=== PATIENT | female | born 1925 | race Caucasian/White ===

== ENCOUNTER 2017-10-01 10:29 | Inpatient (IN) | payer MEDICARE, OTHER ==
--- NOTE | 2017-10-01 11:07 | EDM.PDOC ---
ED HPI GENERAL MEDICAL PROBLEM - General Chief Complaint: General Stated Complaint: SOB Time Seen by Provider: 10/01/17 10:45 Source of Information: Reports: Patient, Family, Old Records History Limitations: Reports: No Limitations - History of Present Illness INITIAL COMMENTS - FREE TEXT/NARRATIVE: Rose comes to [facility] ED with a 2 mos hx of SOB, 5# wt gain, and concerns for possible heart failure. 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 There are 2 episodes of suspected PND, without PNA, palpitations, dizziness, cough, wheezing, or GI upset. Of interest is a PMH of nonHodgkins Lymphoma diagnosed last year. - Related Data Allergies Allergy/AdvReac Type Severity Reaction Status Date / Time atorvastatin calcium AdvReac Joint Pain Verified 10/01/17 10:40 [From Lipitor] Home Meds: Home Meds Amiodarone [Cordarone] 100 mg PO DAILY 07/05/16 [History] Furosemide 60 mg PO DAILY PRN 07/05/16 [History] Metoprolol Succinate 25 mg PO BID 08/14/16 [History] Potassium Chloride 20 meq PO DAILY 10/01/17 [History] Sodium Chloride 1 gm PO ASDIRECTED 10/01/17 [History] Past Medical History HEENT History: Reports: Cataract Cardiovascular History: Reports: High Cholesterol, Hypertension Respiratory History: Reports: None Gastrointestinal History: Reports: Cholelithiasis Genitourinary History: Reports: Urinary Incontinence, Other (See Below) Other Genitourinary History: Stress incontinence. 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 Dermatologic History: Reports: Other (See Below) Other Dermatologic History: Had skin reactions from chemo, presently healing. - Infectious Disease History Infectious Disease History: Reports: Chicken Pox, Other (See Below) Other Infectious Disease History: Had measles, unsure if Red or Burkinan. - Past Surgical History Head Surgeries/Procedures: Reports: None HEENT Surgical History: Reports: Cataract Surgery GI Surgical History: Reports: Appendectomy, Cholecystectomy Female Surgical History: Reports: Hysterectomy Musculoskeletal Surgical History: Reports: Other (See Below) Other Musculoskeletal Surgeries/Procedures:: BILATERAL KNEE PAIN Social & Family History - Family History HEENT: Reports: Cataract Cardiac: Reports: Heart Failure, [place], Prior Cardiac Arrest Musculoskeletal: Reports: None Endocrine/Metabolic: Reports: Diabetes, Type I Oncologic: Reports: Ovarian - Tobacco Use Smoking Status *Q: Never Smoker Second Hand Smoke Exposure: Yes - Caffeine Use Caffeine Use: Reports: Coffee Other Caffeine Use: Drinks a little tea or coffee at times. - Recreational Drug Use Recreational Drug Use: No ED ROS GENERAL - Review of Systems Review Of Systems: See Below Constitutional: Reports: Malaise, Weakness, Fatigue, Weight Gain HEENT: Reports: No Symptoms Respiratory: Reports: Shortness of Breath Cardiovascular: Reports: Chest Pain (atypical chest pain episodes x 2, retrosternal, lasted for moments and subsided earlier this month) Endocrine: Reports: Fatigue GI/Abdominal: Reports: No Symptoms : Reports: No Symptoms Musculoskeletal: Reports: No Symptoms Neurological: Reports: No Symptoms Psychiatric: Reports: Anxiety Hematologic/Lymphatic: Reports: No Symptoms Immunologic: Reports: No Symptoms ED EXAM, GENERAL - Physical Exam Exam: See Below Exam Limited By: No Limitations General Appearance: Alert, WD/WN, No Apparent Distress, Anxious Eye Exam: Bilateral Eye: EOMI, Normal Inspection, PERRL Ears: Normal External Exam, Normal TMs Nose: Normal Inspection Throat/Mouth: Normal Inspection, Normal Oropharynx, No Airway Compromise Head: Atraumatic, Normocephalic Neck: Normal Inspection, Supple, Non-Tender, Full Range of Motion Respiratory/Chest: No Respiratory Distress, Lungs Clear, Normal Breath Sounds, Chest Non-Tender Cardiovascular: Regular Rate, Rhythm, No Gallop, No Murmur GI/Abdominal: Normal Bowel Sounds, Soft, Non-Tender, No Organomegaly, No Distention, No Mass (Female) Exam: Deferred Rectal (Female) Exam: Deferred Back Exam: Normal Inspection, Full Range of Motion Extremities: Normal Inspection, Normal Range of Motion, Pedal Edema (both lower extremities, mild) Neurological: Alert, Oriented, CN II-XII Intact, Normal Cognition, No Motor/ Sensory Deficits Psychiatric: Normal Affect, Anxious Skin Exam: Warm, Dry, Intact Lymphatic: No Adenopathy Course - Vital Signs Text/Narrative:: Following assessment at the [facility] ED, medical investigation included a port chest x ray noting bilateral changes in both lung bases with effusions; the ekg noted NSR; BUN 23, Cr 1.4; Troponin I 0.028, d-dimer 2470, ESR 5 mm; pro BNP 19, 714; Hgb 14.2 gm, WBC 5,100, plts 138,000; Na 142, K 3.6; non FBS 155; a Chest Angio CT noted: cardiac enlargement with bilateral pleural effusions, no pulmonary emboli, no hilar adenopathy;case discussed with family and hospitalist , and she will be admitted for medical management. Last Recorded V/S: Last Vital Signs Temp 36.3 C 10/01/17 10:48 Pulse 93 10/01/17 10:48 Resp 22 H 10/01/17 10:48 BP 119/69 10/01/17 10:48 Pulse Ox 100 10/01/17 10:48 - Orders/Labs/Meds Orders: Active Orders 24 hr Category Date Time Status Ang Chest [CT] Stat Exams 10/01/17 12:26 Taken EKG 12 Lead [EK] Routine Ther 10/01/17 11:00 Ordered Labs: Laboratory Tests 10/01/17 10/01/17 10/01/17 Range/Units 11:10 11:10 11:10 WBC 5.1 (4.5-12.0) X10-3/uL RBC 4.34 (3.23-5.20) x10(6)uL Hgb 14.2 D (11.5-15.5) g/dL Hct 43.4 D (30.0-51.3) % MCV 100.1 H (80-96) fL MCH 32.7 (27.7-33.6) pg MCHC 32.7 (32.2-35.4) g/dL RDW 16.5 H (11.5-15.5) % Plt Count 138 (125-369) X10(3)uL MPV 9.0 (7.4-10.4) fL Neut % (Auto) 67.0 (46-82) % Lymph % (Auto) 18.4 (13-37) % [place] % (Auto) 12.9 H (4-12) % Eos % (Auto) 1 (1.0-5.0) % Baso % (Auto) 1 (0-2) % Neut # (Auto) 3.4 (1.6-8.3) # Lymph # (Auto) 0.9 (0.6-5.0) # [place] # (Auto) 0.7 (0.0-1.3) # Eos # (Auto) 0.1 (0.0-0.8) # Baso # (Auto) 0.0 (0.0-0.2) # ESR (0-20) mm/hr D-Dimer, Quantitative (100-400) ng/mL Sodium 142 (135-145) mmol/L Potassium 3.6 (3.5-5.3) mmol/L Chloride 105 (100-110) mmol/L Carbon Dioxide 27 (21-32) mmol/L BUN 23 H (7-18) mg/dL Creatinine 1.4 H (0.55-1.02) mg/dL Est Cr Clr Drug Dosing 22.53 mL/min Estimated GFR (MDRD) 35 L (>60) BUN/Creatinine Ratio 16.4 (9-20) Glucose 155 H (80-116) mg/dL Calcium 9.2 (8.6-10.2) mg/dL Magnesium 2.0 (1.8-2.5) mg/dL Total Bilirubin 1.4 H (0.1-1.3) mg/dL AST 33 H (5-25) IU/L ALT 29 (12-36) U/L Alkaline Phosphatase 121 H (56-112) IU/L Troponin I 0.028 (<0.017-0.056) ng/mL C-Reactive Protein (0.5-0.9) mg/dL NT-Pro-B Natriuret Pep 72567 H* (<=450) pg/mL Total Protein 6.7 (6.0-8.0) g/dL Albumin 3.3 (2.9-4.5) g/dL Globulin 3.4 g/dL Albumin/Globulin Ratio 1.0 TSH, Ultra Sensitive 1.13 (0.36-3.74) IU/mL Urine Color (YELLOW) Urine Appearance (CLEAR) Urine pH (5.0-6.5) Ur Specific [place] (1.010-1.025) Urine Protein (NEGATIVE) mg/dL Urine Glucose (UA) (NEGATIVE) mg/dL Urine Ketones (NEGATIVE) mg/dL Urine Occult Blood (NEGATIVE) Urine Nitrite (NEGATIVE) Urine Bilirubin (NEGATIVE) Urine Urobilinogen (NEGATIVE) mg/dL Ur Leukocyte Esterase (NEGATIVE) Urine RBC (0) Urine WBC (0) Ur Squamous Epith Cells (NS,R,O) Urine Bacteria (NS) 10/01/17 10/01/17 10/01/17 Range/Units 11:10 11:10 11:10 WBC (4.5-12.0) X10-3/uL RBC (3.23-5.20) x10(6)uL Hgb (11.5-15.5) g/dL Hct (30.0-51.3) % MCV (80-96) fL MCH (27.7-33.6) pg MCHC (32.2-35.4) g/dL RDW (11.5-15.5) % Plt Count (125-369) X10(3)uL MPV (7.4-10.4) fL Neut % (Auto) (46-82) % Lymph % (Auto) (13-37) % [place] % (Auto) (4-12) % Eos % (Auto) (1.0-5.0) % Baso % (Auto) (0-2) % Neut # (Auto) (1.6-8.3) # Lymph # (Auto) (0.6-5.0) # [place] # (Auto) (0.0-1.3) # Eos # (Auto) (0.0-0.8) # Baso # (Auto) (0.0-0.2) # ESR 5 (0-20) mm/hr D-Dimer, Quantitative 2470 H (100-400) ng/mL Sodium (135-145) mmol/L Potassium (3.5-5.3) mmol/L Chloride (100-110) mmol/L Carbon Dioxide (21-32) mmol/L BUN (7-18) mg/dL Creatinine (0.55-1.02) mg/dL Est Cr Clr Drug Dosing mL/min Estimated GFR (MDRD) (>60) BUN/Creatinine Ratio (9-20) Glucose (80-116) mg/dL Calcium (8.6-10.2) mg/dL Magnesium (1.8-2.5) mg/dL Total Bilirubin (0.1-1.3) mg/dL AST (5-25) IU/L ALT (12-36) U/L Alkaline Phosphatase (56-112) IU/L Troponin I (<0.017-0.056) ng/mL C-Reactive Protein 1.3 H (0.5-0.9) mg/dL NT-Pro-B Natriuret Pep (<=450) pg/mL Total Protein (6.0-8.0) g/dL Albumin (2.9-4.5) g/dL Globulin g/dL Albumin/Globulin Ratio TSH, Ultra Sensitive (0.36-3.74) IU/mL Urine Color (YELLOW) Urine Appearance (CLEAR) Urine pH (5.0-6.5) Ur Specific [place] (1.010-1.025) Urine Protein (NEGATIVE) mg/dL Urine Glucose (UA) (NEGATIVE) mg/dL Urine Ketones (NEGATIVE) mg/dL Urine Occult Blood (NEGATIVE) Urine Nitrite (NEGATIVE) Urine Bilirubin (NEGATIVE) Urine Urobilinogen (NEGATIVE) mg/dL Ur Leukocyte Esterase (NEGATIVE) Urine RBC (0) Urine WBC (0) Ur Squamous Epith Cells (NS,R,O) Urine Bacteria (NS) 10/01/17 Range/Units 11:30 WBC (4.5-12.0) X10-3/uL RBC (3.23-5.20) x10(6)uL Hgb (11.5-15.5) g/dL Hct (30.0-51.3) % MCV (80-96) fL MCH (27.7-33.6) pg MCHC (32.2-35.4) g/dL RDW (11.5-15.5) % Plt Count (125-369) X10(3)uL MPV (7.4-10.4) fL Neut % (Auto) (46-82) % Lymph % (Auto) (13-37) % [place] % (Auto) (4-12) % Eos % (Auto) (1.0-5.0) % Baso % (Auto) (0-2) % Neut # (Auto) (1.6-8.3) # Lymph # (Auto) (0.6-5.0) # [place] # (Auto) (0.0-1.3) # Eos # (Auto) (0.0-0.8) # Baso # (Auto) (0.0-0.2) # ESR (0-20) mm/hr D-Dimer, Quantitative (100-400) ng/mL Sodium (135-145) mmol/L Potassium (3.5-5.3) mmol/L Chloride (100-110) mmol/L Carbon Dioxide (21-32) mmol/L BUN (7-18) mg/dL Creatinine (0.55-1.02) mg/dL Est Cr Clr Drug Dosing mL/min Estimated GFR (MDRD) (>60) BUN/Creatinine Ratio (9-20) Glucose (80-116) mg/dL Calcium (8.6-10.2) mg/dL Magnesium (1.8-2.5) mg/dL Total Bilirubin (0.1-1.3) mg/dL AST (5-25) IU/L ALT (12-36) U/L Alkaline Phosphatase (56-112) IU/L Troponin I (<0.017-0.056) ng/mL C-Reactive Protein (0.5-0.9) mg/dL NT-Pro-B Natriuret Pep (<=450) pg/mL Total Protein (6.0-8.0) g/dL Albumin (2.9-4.5) g/dL Globulin g/dL Albumin/Globulin Ratio TSH, Ultra Sensitive (0.36-3.74) IU/mL Urine Color Yellow (YELLOW) Urine Appearance Clear (CLEAR) Urine pH 7.0 H (5.0-6.5) Ur Specific [place] 1.015 (1.010-1.025) Urine Protein Negative (NEGATIVE) mg/dL Urine Glucose (UA) Normal (NEGATIVE) mg/dL Urine Ketones Negative (NEGATIVE) mg/dL Urine Occult Blood Negative (NEGATIVE) Urine Nitrite Negative (NEGATIVE) Urine Bilirubin Negative (NEGATIVE) Urine Urobilinogen Normal (NEGATIVE) mg/dL Ur Leukocyte Esterase Negative (NEGATIVE) Urine RBC 0-5 (0) Urine WBC 0-5 (0) Ur Squamous Epith Cells Occasional (NS,R,O) Urine Bacteria Many H (NS) Meds: Medications Discontinued Medications Generic Name Dose Route Start Last Admin Trade Name Fabio PRN Reason Stop Dose Admin Iopamidol 75 ml 10/01/17 12:50 Isovue-370 (76%) IV 10/01/17 12:51 ONETIME ONE Departure - Departure Time of Disposition: 15:08 Disposition: Admitted As Inpatient 68 Condition: Poor Clinical Impression: CHF, Congestive heart failure - Discharge Information Referrals: Chintan Mendoza MD [Primary Care Provider] - Forms: ED Department Discharge - Problem List & Annotations (1) CHF, Congestive heart failure SNOMED Code(s): 37579929 Code(s): I50.9 - HEART FAILURE, UNSPECIFIED Status: Acute Current Visit: Yes Annotation/Comment:: Admission to Med Surg w monitored bed. - Problem List Review Problem List Initiated/Reviewed/Updated: Yes - My Orders Last 24 Hours: My Active Orders 10/01/17 11:00 EKG 12 Lead [EK] Routine 10/01/17 12:26 Ang Chest [CT] Stat - Assessment/Plan Last 24 Hours: My Active Orders 10/01/17 11:00 EKG 12 Lead [EK] Routine 10/01/17 12:26 Ang Chest [CT] Stat Plan: Follow up with PCP next week.
--- NOTE | 2017-10-01 12:29 | CR ---
INDICATION: Dyspnea. CHEST: Portable AP upright view of the chest was obtained 10/01/2017 and compared with examinations from 01/03/2016 and 08/14/2016, and now reveals bibasilar pleuroparenchymal changes which may be on the basis of minimal pneumonia and pleuritis. Question the possibility of aspiration pneumonia. Other etiology such as neoplasia, in this patient with history of treated Hodgkins lymphoma, would be a less likely possibility with this appearance. Findings should be correlated clinically, however. The heart did not appear grossly enlarged, but was emphasized by the poor inspiration and AP positioning. Calcifications are noted in the arch of the aorta. IMPRESSION: Bibasilar pleuroparenchymal changes of mild degree, which may be on the basis of pneumonia and pleuritis - correlate clinically. Report was given in person to Dr. Kerr at 1135 hours, 10/01/2017. [facility]
[2017-10-01] MEDS ORDERED: Iopamidol 755 Mg/ML 75 ML Bottle IV ONE (12:50)
--- NOTE | 2017-10-01 16:00 | CT ---
INDICATION: Dyspnea, markedly elevated BNP, D-dimer. COMPUTERIZED TOMOGRAPHY ANGIOGRAPHY OF THE CHEST FOR PULMONARY ARTERIES: Spiral 1.25-mm axial sections were obtained through the chest with 75 mL Isovue- 370 at 3 mL per second, with sagittal and coronal reconstructions, 10/01/2017. No comparison CT of the chest was available. Total Exam DLP = 581.08 mGy-cm. Patchy parenchymal changes are noted in the middle lobe and both lower lobes, with moderate sized pleural effusions bilaterally. Findings are felt to be compatible with pneumonia and pleuritis. A process such as aspiration pneumonia would be a consideration. The heart is enlarged. Coronary artery calcifications are seen. No definite evidence of pulmonary emboli could be identified. Calcifications are also noted in the aorta. No definite mediastinal masses were identified. IMPRESSION: 1. No definite evidence of pulmonary emboli could be identified with fairly good visualization of the pulmonary arteries, except in the lower lobes, which were not ideally seen. 2. ASHD with cardiomegaly. 3. ASD. 4. Bibasilar pleuroparenchymal changes compatible with pneumonia and pleuritis with moderate sized pleural effusions bilaterally. Report was given in person to Dr. Kerr soon after the examinations completion, 10/01/2017. [facility]
[2017-10-01] MEDS ORDERED: Lisinopril 2.5 MG Tab PO SCH (17:00)
[2017-10-01] MEDS ORDERED: Sodium Chloride 1 GM Tab PO SCH (17:00)
--- NOTE | 2017-10-01 17:06 | PCM.HP ---
H&P History of Present Illness - General Date of Service: 10/01/17 Admit Problem/Dx: Admission Diagnosis/Problem Admission Diagnosis/Problem Congestive heart failure - History of Present Illness Initial Comments - Free Text/Narative: Pleasant 89-year-old female brought in by her daughter whom she lives with for increasing dyspnea on exertion and weight gain. Patient with chronic CHF recently seen by cardiology and had her Lasix increased as well as fluid restriction of 1500 mL a day with a known EF of 35 per echocardiogram within the last year. She's not had any fevers chills nausea vomiting chest pressure, chest pain, back pain neck or jaw pain. She denies any asymmetric lower extremity edema or pain. She denies any cough, wheezing or sputum production. She has had a normal appetite and bowel regimen. Denies any dysuria, hematuria or pelvic pain pressure. No joint swelling or tenderness. She denies any falls lightheadedness or dizziness upon standing. She is normally ambulatory with a walker but will go up and down the stairs with a cane. When she was seen by cardiology had her Lasix increased. Denies any cardiac surgical procedures. No history of DVT. Presentation to the ER: Noted to have normal respiratory rate and effort, sats mid 90% on room air, afebrile, normotensive with slight elevation in heart rate. EKG with normal ST segments, no blocks or T-wave inversions. Sinus rhythm. Troponin negative. Labs essentially positive for slight elevation in d- dimer for which a CT angiogram was performed ruling out pulmonary embolism. She was noted to have bilateral pleural effusions consistent with CHF exacerbation. Question of infiltrate right lobe lower. Chest x-ray showed poor inspiratory effort. Dr. Carlos Olson is her regular physician. - Related Data Allergies/Adverse Reactions: Allergies Allergy/AdvReac Type Severity Reaction Status Date / Time atorvastatin calcium AdvReac Joint Pain Verified 10/01/17 10:40 [From Lipitor] Home Medications: Home Meds Amiodarone [Cordarone] 100 mg PO DAILY 07/05/16 [History] Furosemide 60 mg PO DAILY PRN 07/05/16 [History] Metoprolol Succinate 25 mg PO BID 08/14/16 [History] Potassium Chloride 20 meq PO DAILY 10/01/17 [History] Sodium Chloride 1 gm PO ASDIRECTED 10/01/17 [History] Past Medical History HEENT History: Reports: Cataract Cardiovascular History: Reports: Heart Failure, High Cholesterol, Hypertension, SOB on Exertion Respiratory History: Reports: None Gastrointestinal History: Reports: Cholelithiasis Genitourinary History: Reports: Urinary Incontinence, Other (See Below) Other Genitourinary History: Stress incontinence. 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 Dermatologic History: Reports: Other (See Below) Other Dermatologic History: Had skin reactions from chemo, THAT LEFT SCARS - Infectious Disease History Infectious Disease History: Reports: Chicken Pox, Other (See Below) Other Infectious Disease History: Had measles, unsure if Red or Estonian. - Past Surgical History Head Surgeries/Procedures: Reports: None HEENT Surgical History: Reports: Cataract Surgery GI Surgical History: Reports: Appendectomy, Cholecystectomy Female Surgical History: Reports: Hysterectomy Musculoskeletal Surgical History: Reports: Other (See Below) Other Musculoskeletal Surgeries/Procedures:: BILATERAL KNEE PAIN - Past Imaging History Past Imaging History: Reports: Angiography, Cardiac Echo, CAT Scan, EEG, Xray Social & Family History - Family History HEENT: Reports: Cataract Cardiac: Reports: Heart Failure, [place], Prior Cardiac Arrest Musculoskeletal: Reports: None Endocrine/Metabolic: Reports: Diabetes, Type I Oncologic: Reports: Ovarian - Tobacco Use Smoking Status *Q: Never Smoker Second Hand Smoke Exposure: Yes - Caffeine Use Caffeine Use: Reports: Coffee Other Caffeine Use: Drinks a little tea or coffee at times. - Recreational Drug Use Recreational Drug Use: No H&P Review of Systems - Review of Systems: Review Of Systems: ROS reveals no pertinent complaints other than HPI. Exam - Exam Exam: See Below - Vital Signs Vital Signs: Last Vital Signs Temp 97.4 F 10/01/17 15:24 Pulse 87 10/01/17 15:24 Resp 18 10/01/17 15:24 BP 116/93 H 10/01/17 15:24 Pulse Ox 100 10/01/17 15:24 Weight: 69.49 kg - Exam General: Alert, Oriented, Cooperative. No: Mild Distress HEENT: Conjunctiva Clear, Mucosa Moist & [place]. No: Scleral Icterus Neck: Supple, Trachea Midline. No: JVD, Thyromegaly Lungs: Rales (lower lobes) Cardiovascular: Regular Rate, Regular Rhythm. No: Gallop/S3, Gallop/S4 GI/Abdominal Exam: Normal Bowel Sounds, Soft, Non-Tender, No Distention Extremities: Non-Tender. No: Joint Swelling, Kelton's Sign, Increased Warmth Skin: Warm, Dry Neurological: Strength Equal Bilateral, Normal Speech, Normal Tone Neuro Extensive - Mental Status: Normal Mood/Affect, Normal Cognition Psychiatric: Alert, Normal Affect, Normal Mood - Patient Data Result Diagrams: 10/01/17 11:10 10/01/17 11:10 *Q Meaningful Use (ADM) - VTE *Q VTE Criteria *Q: - Stroke *Q Stroke Criteria *Q: - AMI *Q AMI Criteria *Q: - Problem List (1) CHF, Congestive heart failure SNOMED Code(s): 64322030 ICD Code: I50.9 - HEART FAILURE, UNSPECIFIED Status: Acute Priority: High Current Visit: Yes Problem Details: Admission to Med [facility] monitored bed. (2) Pleural effusion due to CHF (congestive heart failure) SNOMED Code(s): 73476437 ICD Code: I50.9 - HEART FAILURE, UNSPECIFIED Status: Acute Priority: High Current Visit: Yes Problem List Initiated/Reviewed/Updated: Yes Orders Last 24hrs: Active Orders 24 hr Category Date Time Status Bedrest Bathroom Privileges [RC] ASDIRECTED Care 10/01/17 16:57 Ordered Cardiac Education [RC] Click to Edit Care 10/01/17 16:49 Ordered Cardiac Monitoring [RC] CONTINUOUS Care 10/01/17 16:58 Ordered Head of Bed Elevation [RC] ASDIRECTED Care 10/01/17 17:04 Ordered Height and Weight [RC] DAILY Care 10/01/17 16:57 Ordered Intake and Output [RC] Q4H Care 10/01/17 16:58 Ordered Notify Provider Vital Signs [RC] ASDIRECTED Care 10/01/17 16:59 Ordered Oxygen Therapy [RC] PRN Care 10/01/17 16:57 Ordered Up With Assistance [RC] ASDIRECTED Care 10/01/17 16:57 Ordered VTE/DVT Education [RC] Per Unit Routine Care 10/01/17 16:57 Ordered Vital Signs [RC] Q4H Care 10/01/17 16:57 Ordered 2 Gram Sodium Diet [DIET] Diet 10/01/17 Dinner Active Fluid Restriction [DIET] Diet 10/01/17 Dinner Ordered Chest 2V [CR] AM Exams 10/02/17 05:11 Ordered BASIC METABOLIC PANEL,BMP [CHEM] Routine Lab 10/01/17 16:49 Ordered CBC WITH AUTO DIFF [HEME] AM Lab 10/02/17 05:11 Ordered POTASSIUM,K [CHEM] Q8H Lab 10/01/17 21:00 Ordered POTASSIUM,K [CHEM] Q8H Lab 10/02/17 05:00 Ordered POTASSIUM,K [CHEM] Q8H Lab 10/02/17 13:00 Ordered POTASSIUM,K [CHEM] Q8H Lab 10/02/17 21:00 Ordered PRO B-TYPE NATRIUR PEPT,BNPPRO [CHEM] Routine Lab 10/01/17 16:49 Ordered Acetaminophen [Tylenol] Med 10/01/17 16:57 Ordered 650 mg PO Q4H PRN Amiodarone [Cordarone] Med 10/02/17 09:00 Ordered 100 mg PO DAILY Carvedilol [Coreg] Med 10/01/17 17:00 Ordered 3.125 mg PO BID Enoxaparin [Lovenox] Med 10/01/17 17:00 Ordered 40 mg SUBCUT Q24H Furosemide [Lasix] Med 10/01/17 17:00 Ordered 40 mg IVPUSH Q6H Lisinopril [Prinivil] Med 10/01/17 17:00 Ordered 2.5 mg PO DAILY Potassium Chloride [Klor-Con 10] Med 10/01/17 17:00 Ordered 20 meq PO DAILY Sodium Chloride Med 10/01/17 17:00 Ordered 1 gm PO ASDIRECTED Sodium Chloride 0.9% [Saline Flush] Med 10/01/17 16:57 Ordered 10 ml FLUSH ASDIRECTED PRN CHF Questionnaire [COMM] Routine Oth 10/01/17 16:49 Ordered Saline Lock Insert [OM.PC] Routine Oth 10/01/17 16:57 Ordered Resuscitation Status Routine Resus Stat 10/01/17 16:57 Ordered Medication Orders Acetaminophen (Tylenol) 650 mg PO Q4H PRN PRN Reason: Pain (Mild 1-3)/fever Amiodarone HCl (Cordarone) 100 mg PO DAILY CHIDI Carvedilol (Coreg) 3.125 mg PO BID CHIDI Enoxaparin Sodium (Lovenox) 40 mg SUBCUT Q24H CHIDI Furosemide (Lasix) 40 mg IVPUSH Q6H CHIDI Lisinopril (Prinivil) 2.5 mg PO DAILY CHIDI Potassium Chloride (Klor-Con 10) 20 meq PO DAILY CHIDI Sodium Chloride (Sodium Chloride) 1 gm PO ASDIRECTED CHIDI Sodium Chloride (Saline Flush) 10 ml FLUSH ASDIRECTED PRN PRN Reason: Keep Vein Open Assessment/Plan Comment:: fluid restrict to 1200 cc/hr. 2g sodium diet. switch bb to coreg due to low ef. add small dose of acei. statin allergy. lasix 40 iv q6h with q8h potassium checks. sliv. not clinically consistent with pneumonia. will try to pull fluid of medically. lives with daughter. continuous tele due to med changes. labs reviewed and repeat in am along with repeat cxr with attempt at better inspiration. discussed with patient palliative care status including code status. she agrees to medical management for her cardiac/pulmonary condition but in the event that her heart would stop or she were to stop breathing, she tells me she would not want to be placed on a vent or have any form of cardiac resuscitation. This is indicated in the chart.
[2017-10-01] MEDS: Furosemide 40 MG/4 ML VIAL IVPUSH SCH (18:47)
[2017-10-01] MEDS: Enoxaparin 30 MG/0.3 ML Syringe SUBCUT SCH (18:48)
[2017-10-01] MEDS: Carvedilol 3.125 MG Tab PO SCH (18:48)
[2017-10-01] MEDS ORDERED: Lisinopril 5 MG Tab ONE (18:49)
[2017-10-01] MEDS: Lisinopril 5 MG Tab PO SCH (19:03)
[2017-10-02] MEDS: Sodium Chloride 0.9% 10 ML Syringe FLUSH PRN ×5 (00:26→15:50)
[2017-10-02] MEDS: Furosemide 40 MG/4 ML VIAL IVPUSH SCH ×4 (00:26→18:17)
[2017-10-02] MEDS: Acetaminophen 325 MG Tab PO PRN (00:30)
[2017-10-02] MEDS ORDERED: Potassium Chloride 20 MEQ Tab.ER PO ONE (04:14)
[2017-10-02] MEDS: Amiodarone 200 MG Tab PO SCH (08:42)
[2017-10-02] MEDS: Potassium Chloride 20 MEQ Tab.ER PO SCH (08:42)
[2017-10-02] MEDS ORDERED: Potassium Chloride 20 MEQ in Premix Bag 1 BAG IV ONE (10:51)
--- NOTE | 2017-10-02 11:00 | PCM.PN ---
- General Info Date of Service: 10/02/17 Admission Dx/Problem (Free Text): Sitting up in chair this morning. Breathing is unlabored. Tells me it is much better even with ambulation. Was able to go down the hallway without significant dyspnea on exertion. She is tolerating her diet. Making good amounts of urine. She denies any headache neck pain difficulty swallowing wheezing cough chest pain or pressure heart palpitations lightheadedness or dizziness upon standing getting up to use the restroom with no history of imbalance or fall denies dysuria hematuria pelvic pain or pressure. No swelling in lower extremities. No pain. Denies confusion or agitation. Blood pressures have been on the low side 80 systolic. Patient denies being symptomatic from this. - Review of Systems Systems Review Comment:: For pertinent positives and negatives, please see history of present illness - Patient Data Vitals - Most Recent: Last Vital Signs Temp 97.0 F 10/02/17 08:00 Pulse 98 10/02/17 08:00 Resp 20 10/02/17 08:00 BP 82/59 L 10/02/17 08:00 Pulse Ox 97 10/02/17 08:00 Weight - Most Recent: 69.49 kg I&O - Last 24 Hours: Intake & Output 10/01/17 10/02/17 10/02/17 22:59 06:59 14:59 Intake Total 50 100 250 Output Total 650 1000 Balance -600 -900 250 Lab Results Last 24 Hours: Laboratory Tests 10/01/17 10/01/17 10/01/17 Range/Units 11:10 11:10 11:10 WBC 5.1 (4.5-12.0) X10-3/uL RBC 4.34 (3.23-5.20) x10(6)uL Hgb 14.2 D (11.5-15.5) g/dL Hct 43.4 D (30.0-51.3) % MCV 100.1 H (80-96) fL MCH 32.7 (27.7-33.6) pg MCHC 32.7 (32.2-35.4) g/dL RDW 16.5 H (11.5-15.5) % Plt Count 138 (125-369) X10(3)uL MPV 9.0 (7.4-10.4) fL Neut % (Auto) 67.0 (46-82) % Lymph % (Auto) 18.4 (13-37) % [place] % (Auto) 12.9 H (4-12) % Eos % (Auto) 1 (1.0-5.0) % Baso % (Auto) 1 (0-2) % Neut # (Auto) 3.4 (1.6-8.3) # Lymph # (Auto) 0.9 (0.6-5.0) # [place] # (Auto) 0.7 (0.0-1.3) # Eos # (Auto) 0.1 (0.0-0.8) # Baso # (Auto) 0.0 (0.0-0.2) # Add Manual Diff Neutrophils % (Manual) (46-82) % Lymphocytes % (Manual) (13-37) % Monocytes % (Manual) (4-12) % Eosinophils % (Manual) (0-5) % Hypersegmented Neuts Anisocytosis ESR (0-20) mm/hr D-Dimer, Quantitative (100-400) ng/mL Sodium 142 (135-145) mmol/L Potassium 3.6 (3.5-5.3) mmol/L Chloride 105 (100-110) mmol/L Carbon Dioxide 27 (21-32) mmol/L BUN 23 H (7-18) mg/dL Creatinine 1.4 H (0.55-1.02) mg/dL Est Cr Clr Drug Dosing 22.53 mL/min Estimated GFR (MDRD) 35 L (>60) BUN/Creatinine Ratio 16.4 (9-20) Glucose 155 H (80-116) mg/dL Calcium 9.2 (8.6-10.2) mg/dL Magnesium 2.0 (1.8-2.5) mg/dL Total Bilirubin 1.4 H (0.1-1.3) mg/dL AST 33 H (5-25) IU/L ALT 29 (12-36) U/L Alkaline Phosphatase 121 H (56-112) IU/L Troponin I 0.028 (<0.017-0.056) ng/mL C-Reactive Protein (0.5-0.9) mg/dL NT-Pro-B Natriuret Pep 81594 H* (<=450) pg/mL Total Protein 6.7 (6.0-8.0) g/dL Albumin 3.3 (2.9-4.5) g/dL Globulin 3.4 g/dL Albumin/Globulin Ratio 1.0 TSH, Ultra Sensitive 1.13 (0.36-3.74) IU/mL Urine Color (YELLOW) Urine Appearance (CLEAR) Urine pH (5.0-6.5) Ur Specific [place] (1.010-1.025) Urine Protein (NEGATIVE) mg/dL Urine Glucose (UA) (NEGATIVE) mg/dL Urine Ketones (NEGATIVE) mg/dL Urine Occult Blood (NEGATIVE) Urine Nitrite (NEGATIVE) Urine Bilirubin (NEGATIVE) Urine Urobilinogen (NEGATIVE) mg/dL Ur Leukocyte Esterase (NEGATIVE) Urine RBC (0) Urine WBC (0) Ur Squamous Epith Cells (NS,R,O) Urine Bacteria (NS) 10/01/17 10/01/17 10/01/17 Range/Units 11:10 11:10 11:10 WBC (4.5-12.0) X10-3/uL RBC (3.23-5.20) x10(6)uL Hgb (11.5-15.5) g/dL Hct (30.0-51.3) % MCV (80-96) fL MCH (27.7-33.6) pg MCHC (32.2-35.4) g/dL RDW (11.5-15.5) % Plt Count (125-369) X10(3)uL MPV (7.4-10.4) fL Neut % (Auto) (46-82) % Lymph % (Auto) (13-37) % [place] % (Auto) (4-12) % Eos % (Auto) (1.0-5.0) % Baso % (Auto) (0-2) % Neut # (Auto) (1.6-8.3) # Lymph # (Auto) (0.6-5.0) # [place] # (Auto) (0.0-1.3) # Eos # (Auto) (0.0-0.8) # Baso # (Auto) (0.0-0.2) # Add Manual Diff Neutrophils % (Manual) (46-82) % Lymphocytes % (Manual) (13-37) % Monocytes % (Manual) (4-12) % Eosinophils % (Manual) (0-5) % Hypersegmented Neuts Anisocytosis ESR 5 (0-20) mm/hr D-Dimer, Quantitative 2470 H (100-400) ng/mL Sodium (135-145) mmol/L Potassium (3.5-5.3) mmol/L Chloride (100-110) mmol/L Carbon Dioxide (21-32) mmol/L BUN (7-18) mg/dL Creatinine (0.55-1.02) mg/dL Est Cr Clr Drug Dosing mL/min Estimated GFR (MDRD) (>60) BUN/Creatinine Ratio (9-20) Glucose (80-116) mg/dL Calcium (8.6-10.2) mg/dL Magnesium (1.8-2.5) mg/dL Total Bilirubin (0.1-1.3) mg/dL AST (5-25) IU/L ALT (12-36) U/L Alkaline Phosphatase (56-112) IU/L Troponin I (<0.017-0.056) ng/mL C-Reactive Protein 1.3 H (0.5-0.9) mg/dL NT-Pro-B Natriuret Pep (<=450) pg/mL Total Protein (6.0-8.0) g/dL Albumin (2.9-4.5) g/dL Globulin g/dL Albumin/Globulin Ratio TSH, Ultra Sensitive (0.36-3.74) IU/mL Urine Color (YELLOW) Urine Appearance (CLEAR) Urine pH (5.0-6.5) Ur Specific [place] (1.010-1.025) Urine Protein (NEGATIVE) mg/dL Urine Glucose (UA) (NEGATIVE) mg/dL Urine Ketones (NEGATIVE) mg/dL Urine Occult Blood (NEGATIVE) Urine Nitrite (NEGATIVE) Urine Bilirubin (NEGATIVE) Urine Urobilinogen (NEGATIVE) mg/dL Ur Leukocyte Esterase (NEGATIVE) Urine RBC (0) Urine WBC (0) Ur Squamous Epith Cells (NS,R,O) Urine Bacteria (NS) 10/01/17 10/01/17 10/01/17 Range/Units 11:30 21:00 21:00 WBC (4.5-12.0) X10-3/uL RBC (3.23-5.20) x10(6)uL Hgb (11.5-15.5) g/dL Hct (30.0-51.3) % MCV (80-96) fL MCH (27.7-33.6) pg MCHC (32.2-35.4) g/dL RDW (11.5-15.5) % Plt Count (125-369) X10(3)uL MPV (7.4-10.4) fL Neut % (Auto) (46-82) % Lymph % (Auto) (13-37) % [place] % (Auto) (4-12) % Eos % (Auto) (1.0-5.0) % Baso % (Auto) (0-2) % Neut # (Auto) (1.6-8.3) # Lymph # (Auto) (0.6-5.0) # [place] # (Auto) (0.0-1.3) # Eos # (Auto) (0.0-0.8) # Baso # (Auto) (0.0-0.2) # Add Manual Diff Neutrophils % (Manual) (46-82) % Lymphocytes % (Manual) (13-37) % Monocytes % (Manual) (4-12) % Eosinophils % (Manual) (0-5) % Hypersegmented Neuts Anisocytosis ESR (0-20) mm/hr D-Dimer, Quantitative (100-400) ng/mL Sodium 145 (135-145) mmol/L Potassium 3.0 L (3.5-5.3) mmol/L Chloride (100-110) mmol/L Carbon Dioxide (21-32) mmol/L BUN (7-18) mg/dL Creatinine (0.55-1.02) mg/dL Est Cr Clr Drug Dosing mL/min Estimated GFR (MDRD) (>60) BUN/Creatinine Ratio (9-20) Glucose (80-116) mg/dL Calcium (8.6-10.2) mg/dL Magnesium (1.8-2.5) mg/dL Total Bilirubin (0.1-1.3) mg/dL AST (5-25) IU/L ALT (12-36) U/L Alkaline Phosphatase (56-112) IU/L Troponin I (<0.017-0.056) ng/mL C-Reactive Protein (0.5-0.9) mg/dL NT-Pro-B Natriuret Pep (<=450) pg/mL Total Protein (6.0-8.0) g/dL Albumin (2.9-4.5) g/dL Globulin g/dL Albumin/Globulin Ratio TSH, Ultra Sensitive (0.36-3.74) IU/mL Urine Color Yellow (YELLOW) Urine Appearance Clear (CLEAR) Urine pH 7.0 H (5.0-6.5) Ur Specific [place] 1.015 (1.010-1.025) Urine Protein Negative (NEGATIVE) mg/dL Urine Glucose (UA) Normal (NEGATIVE) mg/dL Urine Ketones Negative (NEGATIVE) mg/dL Urine Occult Blood Negative (NEGATIVE) Urine Nitrite Negative (NEGATIVE) Urine Bilirubin Negative (NEGATIVE) Urine Urobilinogen Normal (NEGATIVE) mg/dL Ur Leukocyte Esterase Negative (NEGATIVE) Urine RBC 0-5 (0) Urine WBC 0-5 (0) Ur Squamous Epith Cells Occasional (NS,R,O) Urine Bacteria Many H (NS) 10/02/17 10/02/17 10/02/17 Range/Units 05:20 05:20 05:20 WBC 4.5 (4.5-12.0) X10-3/uL RBC 4.00 (3.23-5.20) x10(6)uL Hgb 13.0 (11.5-15.5) g/dL Hct 39.2 (30.0-51.3) % MCV 98.2 H (80-96) fL MCH 32.5 (27.7-33.6) pg MCHC 33.2 (32.2-35.4) g/dL RDW 16.4 H (11.5-15.5) % Plt Count 117 L (125-369) X10(3)uL MPV 9.1 (7.4-10.4) fL Neut % (Auto) (46-82) % Lymph % (Auto) (13-37) % [place] % (Auto) (4-12) % Eos % (Auto) (1.0-5.0) % Baso % (Auto) (0-2) % Neut # (Auto) (1.6-8.3) # Lymph # (Auto) (0.6-5.0) # [place] # (Auto) (0.0-1.3) # Eos # (Auto) (0.0-0.8) # Baso # (Auto) (0.0-0.2) # Add Manual Diff Yes Neutrophils % (Manual) 59 (46-82) % Lymphocytes % (Manual) 19 (13-37) % Monocytes % (Manual) 19 H (4-12) % Eosinophils % (Manual) 3 (0-5) % Hypersegmented Neuts Few Anisocytosis Few ESR (0-20) mm/hr D-Dimer, Quantitative (100-400) ng/mL Sodium 144 (135-145) mmol/L Potassium 3.0 L (3.5-5.3) mmol/L Chloride 107 (100-110) mmol/L Carbon Dioxide 28 (21-32) mmol/L BUN 20 H (7-18) mg/dL Creatinine 1.2 H (0.55-1.02) mg/dL Est Cr Clr Drug Dosing 26.29 mL/min Estimated GFR (MDRD) 42 L (>60) BUN/Creatinine Ratio 16.7 (9-20) Glucose 95 (80-116) mg/dL Calcium 8.7 (8.6-10.2) mg/dL Magnesium (1.8-2.5) mg/dL Total Bilirubin (0.1-1.3) mg/dL AST (5-25) IU/L ALT (12-36) U/L Alkaline Phosphatase (56-112) IU/L Troponin I (<0.017-0.056) ng/mL C-Reactive Protein (0.5-0.9) mg/dL NT-Pro-B Natriuret Pep 32663 H* (<=450) pg/mL Total Protein (6.0-8.0) g/dL Albumin (2.9-4.5) g/dL Globulin g/dL Albumin/Globulin Ratio TSH, Ultra Sensitive (0.36-3.74) IU/mL Urine Color (YELLOW) Urine Appearance (CLEAR) Urine pH (5.0-6.5) Ur Specific [place] (1.010-1.025) Urine Protein (NEGATIVE) mg/dL Urine Glucose (UA) (NEGATIVE) mg/dL Urine Ketones (NEGATIVE) mg/dL Urine Occult Blood (NEGATIVE) Urine Nitrite (NEGATIVE) Urine Bilirubin (NEGATIVE) Urine Urobilinogen (NEGATIVE) mg/dL Ur Leukocyte Esterase (NEGATIVE) Urine RBC (0) Urine WBC (0) Ur Squamous Epith Cells (NS,R,O) Urine Bacteria (NS) Med Orders - Current: Current Medications Acetaminophen (Tylenol) 650 mg PO Q4H PRN PRN Reason: Pain (Mild 1-3)/fever Last Admin: 10/02/17 00:30 Dose: 650 mg Amiodarone HCl (Cordarone) 100 mg PO DAILY [facility] Last Admin: 10/02/17 08:42 Dose: 100 mg Carvedilol (Coreg) 1.563 mg PO BIDMEALS [facility] Enoxaparin Sodium (Lovenox) 30 mg SUBCUT Q24H [facility] Last Admin: 10/01/17 18:48 Dose: 30 mg Furosemide (Lasix) 40 mg IVPUSH Q6H [facility] Last Admin: 10/02/17 06:37 Dose: 40 mg Potassium Chloride 20 meq/ (Premix) 100 mls @ 50 mls/hr IV ONETIME ONE Stop: 10/02/17 12:50 Lisinopril (Prinivil) 2.5 mg PO DAILY [facility] Last Admin: 10/01/17 19:03 Dose: 2.5 mg Potassium Chloride (Klor-Con M20) 20 meq PO DAILY [facility] Last Admin: 10/02/17 08:42 Dose: 20 meq Sodium Chloride (Saline Flush) 10 ml FLUSH ASDIRECTED PRN PRN Reason: Keep Vein Open Last Admin: 10/02/17 06:37 Dose: 10 ml Discontinued Medications Carvedilol (Coreg) 3.125 mg PO BIDMEALS [facility] Last Admin: 10/01/17 18:48 Dose: 3.125 mg Iopamidol (Isovue-370 (76%)) 75 ml IV ONETIME ONE Stop: 10/01/17 12:51 Lisinopril (Prinivil) 2.5 mg PO DAILY [facility] Last Admin: 10/01/17 19:10 Dose: Not Given Lisinopril (Prinivil) Confirm Administered Dose 5 mg .ROUTE .STK-MED ONE Stop: 10/01/17 18:50 Last Admin: 10/01/17 21:14 Dose: Not Given Potassium Chloride (Klor-Con M20) 40 meq PO ONETIME ONE Stop: 10/02/17 04:15 Last Admin: 10/02/17 04:35 Dose: 40 meq Sodium Chloride (Sodium Chloride) 1 gm PO ASDIRECTED CHIDI - Exam Physical Findings Comments:: General: Alert, Oriented, Cooperative. Smiling. No: no distress, HEENT: Conjunctiva Clear, Mucosa Moist & [place]. No: Scleral Icterus Neck: Supple, Trachea Midline. Lungs: Rales (lower lobes) with aeration to the bases improved bilaterally. Cardiovascular: Regular Rate, Regular Rhythm. No: Gallop/S3, Gallop/S4. No events on tele overnight. GI/Abdominal Exam: Normal Bowel Sounds, Soft, Non-Tender, No Distention Extremities: Non-Tender. No: Joint Swelling, Kelton's Sign, Increased Warmth Skin: Warm, Dry. Neurological: Strength Equal Bilateral, Normal Speech, Normal Tone Neuro Extensive - Mental Status: Normal Mood/Affect, Normal Cognition Psychiatric: Alert, Normal Affect, Normal Mood - Problem List & Annotations (1) CHF, Congestive heart failure SNOMED Code(s): 03226553 Code(s): I50.9 - HEART FAILURE, UNSPECIFIED Status: Acute Priority: High Current Visit: Yes (2) Pleural effusion due to CHF (congestive heart failure) SNOMED Code(s): 01809363 Code(s): I50.9 - HEART FAILURE, UNSPECIFIED Status: Acute Priority: High Current Visit: Yes (3) Hypotension, iatrogenic SNOMED Code(s): 469913587 Code(s): I95.89 - OTHER HYPOTENSION Status: Acute Priority: High Current Visit: Yes (4) Hypokalemia SNOMED Code(s): 95935127 Code(s): E87.6 - HYPOKALEMIA Status: Acute Current Visit: No (5) Thrombocytopenia SNOMED Code(s): 701653629 Code(s): D69.6 - THROMBOCYTOPENIA, UNSPECIFIED Status: Chronic Current Visit: No (6) Diabetes mellitus SNOMED Code(s): 99621581 Code(s): E11.9 - TYPE 2 DIABETES MELLITUS WITHOUT COMPLICATIONS Status: Chronic Current Visit: No Qualifiers: Diabetes mellitus type: type 2 Diabetes mellitus complication status: without complication (7) Palliative care status SNOMED Code(s): 228001125 Code(s): Z51.5 - ENCOUNTER FOR PALLIATIVE CARE Status: Acute Current Visit: Yes - Problem List Review Problem List Initiated/Reviewed/Updated: Yes - My Orders Last 24 Hours: My Active Orders 10/01/17 16:49 CHF Questionnaire [COMM] Routine 10/01/17 16:57 Bedrest Bathroom Privileges [RC] ASDIRECTED Height and Weight [RC] 0600 Oxygen Therapy [RC] PRN Up With Assistance [RC] ASDIRECTED Vital Signs [RC] Q4H Acetaminophen [Tylenol] 650 mg PO Q4H PRN Sodium Chloride 0.9% [Saline Flush] 10 ml FLUSH ASDIRECTED PRN Saline Lock Insert [OM.PC] Routine 10/01/17 16:58 Cardiac Monitoring [RC] CONTINUOUS Intake and Output [RC] Q4H 10/01/17 16:59 Notify Provider Vital Signs [RC] ASDIRECTED 10/01/17 17:04 Head of Bed Elevation [RC] ASDIRECTED 10/01/17 17:28 Resuscitation Status Routine 10/01/17 18:00 Enoxaparin [Lovenox] 30 mg SUBCUT Q24H Furosemide [Lasix] 40 mg IVPUSH Q6H 10/01/17 19:00 Lisinopril [Prinivil] 2.5 mg PO DAILY 10/01/17 Dinner 2 Gram Sodium Diet [DIET] Fluid Restriction [DIET] 10/02/17 05:11 Chest 2V [CR] AM 10/02/17 09:00 Amiodarone [Cordarone] 100 mg PO DAILY Potassium Chloride [Klor-Con M20] 20 meq PO DAILY 10/02/17 10:51 Potassium Chloride [KCL 20 MEQ in Water 100 ML] 20 meq Premix Bag 1 bag IV ONETIME 10/02/17 13:00 POTASSIUM,K [CHEM] Q8H 10/02/17 21:00 POTASSIUM,K [CHEM] Q8H Carvedilol [Coreg] 1.563 mg PO BIDMEALS - Assessment Assessment:: Please see above - Plan Plan:: Continue to fluid restrict to 1200 cc/day. 2g sodium diet. coreg cut dose in half due to low BP. hold lisinopril 2.5 mg daily will be held at this time due to same. lasix 40 iv q6h with q8h potassium checks. Fluid coming off and BNP showing improvement. Potassium consistently low so will replace with IV and continue for oral potassium supplement as well. We'll have strict ins and outs. sliv. again not clinically consistent with pneumonia. will try to continue to pull fluid of medically. lives with daughter. continuous tele due to med changes. labs reviewed and repeat in am. repeat cxr pending this morning. We'll have PT OT continue to work with her while here.
[2017-10-02] MEDS: Lisinopril 5 MG Tab PO SCH (12:09)
[2017-10-02] MEDS: Carvedilol 3.125 MG Tab PO SCH ×2 (14:12→20:42)
[2017-10-02] MEDS ORDERED: Sodium Chloride 0.9% 250 ML IV SCH (16:00)
[2017-10-02] MEDS: Enoxaparin 30 MG/0.3 ML Syringe SUBCUT SCH (18:17)
[2017-10-03] MEDS: Furosemide 40 MG/4 ML VIAL IVPUSH SCH ×2 (00:26→05:58)
[2017-10-03] MEDS: Sodium Chloride 0.9% 10 ML Syringe FLUSH PRN (00:29)
[2017-10-03] MEDS ORDERED: Potassium Chloride 20 MEQ Tab.ER PO ONE (09:19)
[2017-10-03] MEDS: Amiodarone 200 MG Tab PO SCH (09:25)
--- NOTE | 2017-10-03 09:32 | PCM.PN ---
- General Info Date of Service: 10/03/17 Subjective Update: Patient has been ambulating in the hallways. She tells me she feels her strength is much improved. She is minimally dyspneic on exertion. Tells me that the distance from her hospital room to one of the local bathrooms is about the distance she has to walk from her room at home. She goes past this easily with a walker and one standby assist. Nursing denies any events overnight on telemetry however her blood pressure medications have continued to be held due to prior low blood pressures. She is tolerating her diet. Making good amounts of urine. She denies any headache neck pain difficulty swallowing wheezing cough chest pain or pressure heart palpitations lightheadedness or dizziness upon standing getting up to use the restroom with no history of imbalance or fall denies dysuria hematuria pelvic pain or pressure. No swelling in lower extremities. No pain. Denies confusion or agitation. Functional Status: Reports: Tolerating Diet, Ambulating, Urinating, Incentive Spirometry - Review of Systems Systems Review Comment:: For pertinent positives and negatives please see history of present illness - Patient Data Vitals - Most Recent: Last Vital Signs Temp 97.7 F 10/03/17 08:00 Pulse 106 H 10/03/17 08:00 Resp 20 10/03/17 08:00 BP 112/73 10/03/17 08:00 Pulse Ox 95 10/03/17 08:00 Weight - Most Recent: 68.81 kg I&O - Last 24 Hours: Intake & Output 10/02/17 10/03/17 10/03/17 22:59 06:59 14:59 Intake Total 145 Output Total 800 600 300 Balance -665 600 300 Weight is down 7.382 pounds from admission Lab Results Last 24 Hours: Laboratory Tests 10/01/17 10/01/17 10/01/17 Range/Units 11:10 11:10 11:10 WBC 5.1 (4.5-12.0) X10-3/uL RBC 4.34 (3.23-5.20) x10(6)uL Hgb 14.2 D (11.5-15.5) g/dL Hct 43.4 D (30.0-51.3) % MCV 100.1 H (80-96) fL MCH 32.7 (27.7-33.6) pg MCHC 32.7 (32.2-35.4) g/dL RDW 16.5 H (11.5-15.5) % Plt Count 138 (125-369) X10(3)uL MPV 9.0 (7.4-10.4) fL Neut % (Auto) 67.0 (46-82) % Lymph % (Auto) 18.4 (13-37) % [place] % (Auto) 12.9 H (4-12) % Eos % (Auto) 1 (1.0-5.0) % Baso % (Auto) 1 (0-2) % Neut # (Auto) 3.4 (1.6-8.3) # Lymph # (Auto) 0.9 (0.6-5.0) # [place] # (Auto) 0.7 (0.0-1.3) # Eos # (Auto) 0.1 (0.0-0.8) # Baso # (Auto) 0.0 (0.0-0.2) # Add Manual Diff Neutrophils % (Manual) (46-82) % Lymphocytes % (Manual) (13-37) % Monocytes % (Manual) (4-12) % Eosinophils % (Manual) (0-5) % Hypersegmented Neuts Anisocytosis ESR (0-20) mm/hr D-Dimer, Quantitative (100-400) ng/mL Sodium 142 (135-145) mmol/L Potassium 3.6 (3.5-5.3) mmol/L Chloride 105 (100-110) mmol/L Carbon Dioxide 27 (21-32) mmol/L BUN 23 H (7-18) mg/dL Creatinine 1.4 H (0.55-1.02) mg/dL Est Cr Clr Drug Dosing 22.53 mL/min Estimated GFR (MDRD) 35 L (>60) BUN/Creatinine Ratio 16.4 (9-20) Glucose 155 H (80-116) mg/dL Calcium 9.2 (8.6-10.2) mg/dL Magnesium 2.0 (1.8-2.5) mg/dL Total Bilirubin 1.4 H (0.1-1.3) mg/dL AST 33 H (5-25) IU/L ALT 29 (12-36) U/L Alkaline Phosphatase 121 H (56-112) IU/L Troponin I 0.028 (<0.017-0.056) ng/mL C-Reactive Protein (0.5-0.9) mg/dL NT-Pro-B Natriuret Pep 27458 H* (<=450) pg/mL Total Protein 6.7 (6.0-8.0) g/dL Albumin 3.3 (2.9-4.5) g/dL Globulin 3.4 g/dL Albumin/Globulin Ratio 1.0 TSH, Ultra Sensitive 1.13 (0.36-3.74) IU/mL Urine Color (YELLOW) Urine Appearance (CLEAR) Urine pH (5.0-6.5) Ur Specific [place] (1.010-1.025) Urine Protein (NEGATIVE) mg/dL Urine Glucose (UA) (NEGATIVE) mg/dL Urine Ketones (NEGATIVE) mg/dL Urine Occult Blood (NEGATIVE) Urine Nitrite (NEGATIVE) Urine Bilirubin (NEGATIVE) Urine Urobilinogen (NEGATIVE) mg/dL Ur Leukocyte Esterase (NEGATIVE) Urine RBC (0) Urine WBC (0) Ur Squamous Epith Cells (NS,R,O) Urine Bacteria (NS) 10/01/17 10/01/17 10/01/17 Range/Units 11:10 11:10 11:10 WBC (4.5-12.0) X10-3/uL RBC (3.23-5.20) x10(6)uL Hgb (11.5-15.5) g/dL Hct (30.0-51.3) % MCV (80-96) fL MCH (27.7-33.6) pg MCHC (32.2-35.4) g/dL RDW (11.5-15.5) % Plt Count (125-369) X10(3)uL MPV (7.4-10.4) fL Neut % (Auto) (46-82) % Lymph % (Auto) (13-37) % [place] % (Auto) (4-12) % Eos % (Auto) (1.0-5.0) % Baso % (Auto) (0-2) % Neut # (Auto) (1.6-8.3) # Lymph # (Auto) (0.6-5.0) # [place] # (Auto) (0.0-1.3) # Eos # (Auto) (0.0-0.8) # Baso # (Auto) (0.0-0.2) # Add Manual Diff Neutrophils % (Manual) (46-82) % Lymphocytes % (Manual) (13-37) % Monocytes % (Manual) (4-12) % Eosinophils % (Manual) (0-5) % Hypersegmented Neuts Anisocytosis ESR 5 (0-20) mm/hr D-Dimer, Quantitative 2470 H (100-400) ng/mL Sodium (135-145) mmol/L Potassium (3.5-5.3) mmol/L Chloride (100-110) mmol/L Carbon Dioxide (21-32) mmol/L BUN (7-18) mg/dL Creatinine (0.55-1.02) mg/dL Est Cr Clr Drug Dosing mL/min Estimated GFR (MDRD) (>60) BUN/Creatinine Ratio (9-20) Glucose (80-116) mg/dL Calcium (8.6-10.2) mg/dL Magnesium (1.8-2.5) mg/dL Total Bilirubin (0.1-1.3) mg/dL AST (5-25) IU/L ALT (12-36) U/L Alkaline Phosphatase (56-112) IU/L Troponin I (<0.017-0.056) ng/mL C-Reactive Protein 1.3 H (0.5-0.9) mg/dL NT-Pro-B Natriuret Pep (<=450) pg/mL Total Protein (6.0-8.0) g/dL Albumin (2.9-4.5) g/dL Globulin g/dL Albumin/Globulin Ratio TSH, Ultra Sensitive (0.36-3.74) IU/mL Urine Color (YELLOW) Urine Appearance (CLEAR) Urine pH (5.0-6.5) Ur Specific [place] (1.010-1.025) Urine Protein (NEGATIVE) mg/dL Urine Glucose (UA) (NEGATIVE) mg/dL Urine Ketones (NEGATIVE) mg/dL Urine Occult Blood (NEGATIVE) Urine Nitrite (NEGATIVE) Urine Bilirubin (NEGATIVE) Urine Urobilinogen (NEGATIVE) mg/dL Ur Leukocyte Esterase (NEGATIVE) Urine RBC (0) Urine WBC (0) Ur Squamous Epith Cells (NS,R,O) Urine Bacteria (NS) 10/01/17 10/01/17 10/01/17 Range/Units 11:30 21:00 21:00 WBC (4.5-12.0) X10-3/uL RBC (3.23-5.20) x10(6)uL Hgb (11.5-15.5) g/dL Hct (30.0-51.3) % MCV (80-96) fL MCH (27.7-33.6) pg MCHC (32.2-35.4) g/dL RDW (11.5-15.5) % Plt Count (125-369) X10(3)uL MPV (7.4-10.4) fL Neut % (Auto) (46-82) % Lymph % (Auto) (13-37) % [place] % (Auto) (4-12) % Eos % (Auto) (1.0-5.0) % Baso % (Auto) (0-2) % Neut # (Auto) (1.6-8.3) # Lymph # (Auto) (0.6-5.0) # [place] # (Auto) (0.0-1.3) # Eos # (Auto) (0.0-0.8) # Baso # (Auto) (0.0-0.2) # Add Manual Diff Neutrophils % (Manual) (46-82) % Lymphocytes % (Manual) (13-37) % Monocytes % (Manual) (4-12) % Eosinophils % (Manual) (0-5) % Hypersegmented Neuts Anisocytosis ESR (0-20) mm/hr D-Dimer, Quantitative (100-400) ng/mL Sodium 145 (135-145) mmol/L Potassium 3.0 L (3.5-5.3) mmol/L Chloride (100-110) mmol/L Carbon Dioxide (21-32) mmol/L BUN (7-18) mg/dL Creatinine (0.55-1.02) mg/dL Est Cr Clr Drug Dosing mL/min Estimated GFR (MDRD) (>60) BUN/Creatinine Ratio (9-20) Glucose (80-116) mg/dL Calcium (8.6-10.2) mg/dL Magnesium (1.8-2.5) mg/dL Total Bilirubin (0.1-1.3) mg/dL AST (5-25) IU/L ALT (12-36) U/L Alkaline Phosphatase (56-112) IU/L Troponin I (<0.017-0.056) ng/mL C-Reactive Protein (0.5-0.9) mg/dL NT-Pro-B Natriuret Pep (<=450) pg/mL Total Protein (6.0-8.0) g/dL Albumin (2.9-4.5) g/dL Globulin g/dL Albumin/Globulin Ratio TSH, Ultra Sensitive (0.36-3.74) IU/mL Urine Color Yellow (YELLOW) Urine Appearance Clear (CLEAR) Urine pH 7.0 H (5.0-6.5) Ur Specific [place] 1.015 (1.010-1.025) Urine Protein Negative (NEGATIVE) mg/dL Urine Glucose (UA) Normal (NEGATIVE) mg/dL Urine Ketones Negative (NEGATIVE) mg/dL Urine Occult Blood Negative (NEGATIVE) Urine Nitrite Negative (NEGATIVE) Urine Bilirubin Negative (NEGATIVE) Urine Urobilinogen Normal (NEGATIVE) mg/dL Ur Leukocyte Esterase Negative (NEGATIVE) Urine RBC 0-5 (0) Urine WBC 0-5 (0) Ur Squamous Epith Cells Occasional (NS,R,O) Urine Bacteria Many H (NS) 10/02/17 10/02/17 10/02/17 Range/Units 05:20 05:20 05:20 WBC 4.5 (4.5-12.0) X10-3/uL RBC 4.00 (3.23-5.20) x10(6)uL Hgb 13.0 (11.5-15.5) g/dL Hct 39.2 (30.0-51.3) % MCV 98.2 H (80-96) fL MCH 32.5 (27.7-33.6) pg MCHC 33.2 (32.2-35.4) g/dL RDW 16.4 H (11.5-15.5) % Plt Count 117 L (125-369) X10(3)uL MPV 9.1 (7.4-10.4) fL Neut % (Auto) (46-82) % Lymph % (Auto) (13-37) % [place] % (Auto) (4-12) % Eos % (Auto) (1.0-5.0) % Baso % (Auto) (0-2) % Neut # (Auto) (1.6-8.3) # Lymph # (Auto) (0.6-5.0) # [place] # (Auto) (0.0-1.3) # Eos # (Auto) (0.0-0.8) # Baso # (Auto) (0.0-0.2) # Add Manual Diff Yes Neutrophils % (Manual) 59 (46-82) % Lymphocytes % (Manual) 19 (13-37) % Monocytes % (Manual) 19 H (4-12) % Eosinophils % (Manual) 3 (0-5) % Hypersegmented Neuts Few Anisocytosis Few ESR (0-20) mm/hr D-Dimer, Quantitative (100-400) ng/mL Sodium 144 (135-145) mmol/L Potassium 3.0 L (3.5-5.3) mmol/L Chloride 107 (100-110) mmol/L Carbon Dioxide 28 (21-32) mmol/L BUN 20 H (7-18) mg/dL Creatinine 1.2 H (0.55-1.02) mg/dL Est Cr Clr Drug Dosing 26.29 mL/min Estimated GFR (MDRD) 42 L (>60) BUN/Creatinine Ratio 16.7 (9-20) Glucose 95 (80-116) mg/dL Calcium 8.7 (8.6-10.2) mg/dL Magnesium (1.8-2.5) mg/dL Total Bilirubin (0.1-1.3) mg/dL AST (5-25) IU/L ALT (12-36) U/L Alkaline Phosphatase (56-112) IU/L Troponin I (<0.017-0.056) ng/mL C-Reactive Protein (0.5-0.9) mg/dL NT-Pro-B Natriuret Pep 11128 H* (<=450) pg/mL Total Protein (6.0-8.0) g/dL Albumin (2.9-4.5) g/dL Globulin g/dL Albumin/Globulin Ratio TSH, Ultra Sensitive (0.36-3.74) IU/mL Urine Color (YELLOW) Urine Appearance (CLEAR) Urine pH (5.0-6.5) Ur Specific [place] (1.010-1.025) Urine Protein (NEGATIVE) mg/dL Urine Glucose (UA) (NEGATIVE) mg/dL Urine Ketones (NEGATIVE) mg/dL Urine Occult Blood (NEGATIVE) Urine Nitrite (NEGATIVE) Urine Bilirubin (NEGATIVE) Urine Urobilinogen (NEGATIVE) mg/dL Ur Leukocyte Esterase (NEGATIVE) Urine RBC (0) Urine WBC (0) Ur Squamous Epith Cells (NS,R,O) Urine Bacteria (NS) 10/02/17 10/02/17 10/03/17 Range/Units 13:00 19:00 06:25 WBC (4.5-12.0) X10-3/uL RBC (3.23-5.20) x10(6)uL Hgb (11.5-15.5) g/dL Hct (30.0-51.3) % MCV (80-96) fL MCH (27.7-33.6) pg MCHC (32.2-35.4) g/dL RDW (11.5-15.5) % Plt Count (125-369) X10(3)uL MPV (7.4-10.4) fL Neut % (Auto) (46-82) % Lymph % (Auto) (13-37) % [place] % (Auto) (4-12) % Eos % (Auto) (1.0-5.0) % Baso % (Auto) (0-2) % Neut # (Auto) (1.6-8.3) # Lymph # (Auto) (0.6-5.0) # [place] # (Auto) (0.0-1.3) # Eos # (Auto) (0.0-0.8) # Baso # (Auto) (0.0-0.2) # Add Manual Diff Neutrophils % (Manual) (46-82) % Lymphocytes % (Manual) (13-37) % Monocytes % (Manual) (4-12) % Eosinophils % (Manual) (0-5) % Hypersegmented Neuts Anisocytosis ESR (0-20) mm/hr D-Dimer, Quantitative (100-400) ng/mL Sodium (135-145) mmol/L Potassium 3.8 3.8 3.0 L (3.5-5.3) mmol/L Chloride (100-110) mmol/L Carbon Dioxide (21-32) mmol/L BUN (7-18) mg/dL Creatinine (0.55-1.02) mg/dL Est Cr Clr Drug Dosing mL/min Estimated GFR (MDRD) (>60) BUN/Creatinine Ratio (9-20) Glucose (80-116) mg/dL Calcium (8.6-10.2) mg/dL Magnesium (1.8-2.5) mg/dL Total Bilirubin (0.1-1.3) mg/dL AST (5-25) IU/L ALT (12-36) U/L Alkaline Phosphatase (56-112) IU/L Troponin I (<0.017-0.056) ng/mL C-Reactive Protein (0.5-0.9) mg/dL NT-Pro-B Natriuret Pep (<=450) pg/mL Total Protein (6.0-8.0) g/dL Albumin (2.9-4.5) g/dL Globulin g/dL Albumin/Globulin Ratio TSH, Ultra Sensitive (0.36-3.74) IU/mL Urine Color (YELLOW) Urine Appearance (CLEAR) Urine pH (5.0-6.5) Ur Specific [place] (1.010-1.025) Urine Protein (NEGATIVE) mg/dL Urine Glucose (UA) (NEGATIVE) mg/dL Urine Ketones (NEGATIVE) mg/dL Urine Occult Blood (NEGATIVE) Urine Nitrite (NEGATIVE) Urine Bilirubin (NEGATIVE) Urine Urobilinogen (NEGATIVE) mg/dL Ur Leukocyte Esterase (NEGATIVE) Urine RBC (0) Urine WBC (0) Ur Squamous Epith Cells (NS,R,O) Urine Bacteria (NS) Med Orders - Current: Current Medications Acetaminophen (Tylenol) 650 mg PO Q4H PRN PRN Reason: Pain (Mild 1-3)/fever Last Admin: 10/02/17 00:30 Dose: 650 mg Amiodarone HCl (Cordarone) 100 mg PO DAILY [facility] Last Admin: 10/02/17 08:42 Dose: 100 mg Enoxaparin Sodium (Lovenox) 30 mg SUBCUT Q24H [facility] Last Admin: 10/02/17 18:17 Dose: 30 mg Sodium Chloride (Normal Saline) 250 mls @ 0 mls/hr IV ASDIRECTED [facility] PRN Reason: KVO Last Admin: 10/02/17 13:10 Dose: 50 mls/hr Metoprolol Tartrate (Lopressor) 25 mg PO Q6H [facility] Potassium Chloride (Klor-Con M20) 40 meq PO DAILY [facility] Potassium Chloride (Klor-Con M20) 20 meq PO ONETIME ONE Stop: 10/03/17 09:20 Sodium Chloride (Saline Flush) 10 ml FLUSH ASDIRECTED PRN PRN Reason: Keep Vein Open Last Admin: 10/03/17 00:29 Dose: 10 ml Discontinued Medications Carvedilol (Coreg) 3.125 mg PO BIDMEALS [facility] Last Admin: 10/02/17 14:12 Dose: Not Given Carvedilol (Coreg) 1.563 mg PO BIDMEALS [facility] Last Admin: 10/02/17 20:42 Dose: Not Given Furosemide (Lasix) 40 mg IVPUSH Q6H [facility] Last Admin: 10/03/17 05:58 Dose: 40 mg Potassium Chloride 20 meq/ (Premix) 100 mls @ 50 mls/hr IV ONETIME ONE Stop: 10/02/17 12:50 Last Admin: 10/02/17 12:46 Dose: 50 mls/hr Iopamidol (Isovue-370 (76%)) 75 ml IV ONETIME ONE Stop: 10/01/17 12:51 Lisinopril (Prinivil) 2.5 mg PO DAILY [facility] Last Admin: 10/01/17 19:10 Dose: Not Given Lisinopril (Prinivil) Confirm Administered Dose 5 mg .ROUTE .STK-MED ONE Stop: 10/01/17 18:50 Last Admin: 10/01/17 21:14 Dose: Not Given Lisinopril (Prinivil) 2.5 mg PO DAILY [facility] Last Admin: 10/02/17 12:09 Dose: Not Given Lisinopril (Prinivil) 2.5 mg PO DAILY [facility] Potassium Chloride (Klor-Con M20) 20 meq PO DAILY [facility] Last Admin: 10/02/17 08:42 Dose: 20 meq Potassium Chloride (Klor-Con M20) 40 meq PO ONETIME ONE Stop: 10/02/17 04:15 Last Admin: 10/02/17 04:35 Dose: 40 meq Sodium Chloride (Sodium Chloride) 1 gm PO ASDIRECTED [facility] - Exam Physical Findings Comments:: General: Alert, Oriented, Cooperative. Smiling. No: no distress, HEENT: Conjunctiva Clear, Mucosa Moist & Atco. No: Scleral Icterus Neck: Supple, Trachea Midline. Lungs: Minimal Rales (lower lobes) with aeration to the bases improved significantly bilaterally. Cardiovascular: Regular Rate, Regular Rhythm. No: Gallop/S3, Gallop/S4. No events on tele overnight. GI/Abdominal Exam: Normal Bowel Sounds, Soft, Non-Tender, No Distention Extremities: Non-Tender. No: Joint Swelling, Kelton's Sign, Increased Warmth Skin: Warm, Dry. Neurological: Strength Equal Bilateral, Normal Speech, Normal Tone Neuro Extensive - Mental Status: Normal Mood/Affect, Normal Cognition - Problem List & Annotations (1) CHF, Congestive heart failure SNOMED Code(s): 30041047 Code(s): I50.9 - HEART FAILURE, UNSPECIFIED Status: Acute Priority: High Current Visit: Yes (2) Pleural effusion due to CHF (congestive heart failure) SNOMED Code(s): 53704321 Code(s): I50.9 - HEART FAILURE, UNSPECIFIED Status: Acute Priority: High Current Visit: Yes (3) Hypotension, iatrogenic SNOMED Code(s): 341767947 Code(s): I95.89 - OTHER HYPOTENSION Status: Acute Priority: High Current Visit: Yes (4) Hypokalemia SNOMED Code(s): 98519856 Code(s): E87.6 - HYPOKALEMIA Status: Acute Current Visit: Yes (5) Thrombocytopenia SNOMED Code(s): 193698646 Code(s): D69.6 - THROMBOCYTOPENIA, UNSPECIFIED Status: Chronic Current Visit: Yes (6) Diabetes mellitus SNOMED Code(s): 31587952 Code(s): E11.9 - TYPE 2 DIABETES MELLITUS WITHOUT COMPLICATIONS Status: Chronic Current Visit: Yes Qualifiers: Diabetes mellitus type: type 2 Diabetes mellitus complication status: without complication (7) Hypertension SNOMED Code(s): 87979388 Code(s): I10 - ESSENTIAL (PRIMARY) HYPERTENSION Status: Chronic Current Visit: Yes Qualifiers: Hypertension type: essential hypertension Qualified Code(s): I10 - Essential (primary) hypertension (8) Anemia SNOMED Code(s): 223541336 Code(s): D64.9 - ANEMIA, UNSPECIFIED Status: Chronic Current Visit: Yes (9) Palliative care status SNOMED Code(s): 341094086 Code(s): Z51.5 - ENCOUNTER FOR PALLIATIVE CARE Status: Acute Current Visit: Yes - Problem List Review Problem List Initiated/Reviewed/Updated: Yes - My Orders Last 24 Hours: My Active Orders 10/04/17 05:11 BASIC METABOLIC PANEL,BMP [CHEM] AM C-REACTIVE PROTEIN [CHEM] AM CBC WITH AUTO DIFF [HEME] AM PRO B-TYPE NATRIUR PEPT,BNPPRO [CHEM] AM 10/04/17 09:00 Potassium Chloride [Klor-Con M20] 40 meq PO DAILY 10/02/17 16:00 Sodium Chloride 0.9% [Normal Saline] 250 ml IV ASDIRECTED 10/03/17 09:15 Metoprolol Tartrate [Lopressor] 25 mg PO Q6H 10/03/17 10:33 Activity as Tolerated [RC] .Routine - Assessment Assessment:: Please see above - Plan Plan:: Acute CHF exacerbation with yesterday's x-ray showing improved aeration and decreased bilateral pleural effusion. Official radiographic interpretation pending. I did compare this to a 2016 film. Urine output with IV Lasix 40 mg every 6 hours has resulted in 3750 mL over the last 24 hours however her weight which I question is only down 1.5 pounds. I'm going to discontinue her IV Lasix as her potassium keeps returning low despite IV replacement. I will increase her oral potassium dose to 40 mEq daily. She's had no events on telemetry. Vital signs look good running 18-20 respirations with 95% O2 sats on room air pulses run 90-106 bpm however with her blood pressure running on the low side 80s to 90s systolic over 60s diastolic. I'm going to discontinue the Coreg and lisinopril and put her back on metoprolol selective beta adela. will start with immediate acting 25 mg every 6 hours and if tolerates will go back to Toprol-XL 25 mg twice a day which she was on prior to admission. Continue to fluid restrict to 1200 cc/day. 2g sodium diet.We'll continue strict ins and outs. IV remain saline locked. again not clinically consistent with pneumonia no antibiotics on board at this time. will try to continue to pull fluid off conservatively at this time. lives with daughter. continuous tele due to med changes. labs reviewed and repeat in am. We'll have PT OT continue to work with her while here.
[2017-10-03] MEDS: Metoprolol Tartrate 25 MG Tab PO SCH ×3 (10:14→20:28)
[2017-10-03] MEDS: Potassium Chloride 20 MEQ Tab.ER PO SCH ×2 (10:15→10:40)
[2017-10-03] MEDS: Carvedilol 3.125 MG Tab PO SCH (10:15)
[2017-10-03] MEDS: Acetaminophen 325 MG Tab PO PRN (16:32)
[2017-10-03] MEDS: Enoxaparin 30 MG/0.3 ML Syringe SUBCUT SCH (18:01)
[2017-10-04] MEDS: Metoprolol Tartrate 25 MG Tab PO SCH ×4 (03:30→21:15)
--- NOTE | 2017-10-04 08:39 | PCM.PN ---
- General Info Date of Service: 10/04/17 Subjective Update: Patient daughter in the room together today. She is sitting up at the bedside smiling making good eye contact no respiratory distress no diaphoresis. Speaking in complete sentences. She is alert and oriented 3. Tells me she is feeling much stronger and is getting around better without shortness of breath. Continues to ambulate in the [place] with a well walker. She did have some right shoulder pain in the evening for which EKG was performed showing chronic right bundle branch block without any other electrical abnormalities. She continues to have a widened QRS but this was compared to prior EKGs and unchanged. She has been eating and drinking without difficulty. Urine output has been good she' s had bowel movement. She denies any headache blurred vision dizziness upon standing vertigo tinnitus neck or jaw pain chest pain or pressure palpitations wheezing increased cough or sputum production. She denies any difficulty chewing or swallowing. She's had no choking. She denies any nausea. She's had no vomiting. Denies any pleuritic chest pain. Denies any abdominal pain distention diarrhea or constipation. She denies any dysuria hematuria difficulty emptying the bladder or malodorous urine. She denies any warmth or tenderness to the joints but she does know her right shoulder at times aches. Denies any increased swelling in the lower extremities no calf redness tenderness or other leg edema. Denies any numbness or tingling. Denies any confusion or disorientation. Speaking with her daughter, her blood pressures normally run in the 90s to 100 systolic. At times her pulse run in the 110s, her clerical order filler is aware of this she states. Has only recently been increased on her Lasix to 80 mg daily. Normally on 40 mg. - Review of Systems Systems Review Comment:: For pertinent positives and negatives please see history of present illness - Patient Data Vitals - Most Recent: Vital Signs - 24 hr 10/03/17 10/03/17 10/03/17 10:14 13:10 15:20 Temperature [ 97.7 F 97.7 F Oral] Pulse, 106 H Peripheral Pulse, Peripheral [ Left Pulse Oximetry] Pulse, 88 94 Peripheral [ Right Pulse Oximetry] Respiratory 18 18 Rate Blood Pressure 112/73 Blood Pressure 132/62 93/62 [Left Upper Arm ] O2 Sat by Pulse 100 97 Oximetry 10/03/17 10/03/17 10/03/17 15:32 20:00 20:28 Temperature [ 97.8 F Oral] Pulse, 94 88 Peripheral Pulse, 88 Peripheral [ Left Pulse Oximetry] Pulse, Peripheral [ Right Pulse Oximetry] Respiratory 18 Rate Blood Pressure 93/62 94/61 Blood Pressure 94/61 [Left Upper Arm ] O2 Sat by Pulse 98 Oximetry 10/04/17 10/04/17 10/04/17 00:00 03:30 04:00 Temperature [ 97.6 F 97.6 F Oral] Pulse, 86 Peripheral Pulse, 86 87 Peripheral [ Left Pulse Oximetry] Pulse, Peripheral [ Right Pulse Oximetry] Respiratory 16 16 Rate Blood Pressure 80/57 L Blood Pressure 87/51 L 80/57 L [Left Upper Arm ] O2 Sat by Pulse 95 92 L Oximetry Weight - Most Recent: 66.814 kg I&O - Last 24 Hours: Intake & Output 10/02/17 10/03/17 10/04/17 06:59 06:59 06:59 Intake Total 150 1138 850 Output Total 1650 1800 1050 Balance -1500 -662 -200 BM- 0 Imaging Impressions - Last 24 Hours: Chest x-ray this morning does show continued right pleural effusion and left pleural effusion however it does appear that these are diminishing. She has better aeration throughout. There does appear to be focal parenchymal change centrally on the right. Heart continues to be enlarged. Official radiology read pending. Lab Results Last 24 Hours: Laboratory Results - last 24 hr 10/04/17 10/04/17 10/04/17 Range/Units 07:12 07:12 07:12 WBC 5.6 (4.5-12.0) X10-3/uL RBC 4.34 (3.23-5.20) x10(6)uL Hgb 14.1 (11.5-15.5) g/dL Hct 42.8 (30.0-51.3) % MCV 98.5 H (80-96) fL MCH 32.5 (27.7-33.6) pg MCHC 32.9 (32.2-35.4) g/dL RDW 16.1 H (11.5-15.5) % Plt Count 150 (125-369) X10(3)uL MPV 8.7 (7.4-10.4) fL Add Manual Diff Yes Neutrophils % (Manual) 57 (46-82) % Lymphocytes % (Manual) 24 (13-37) % Monocytes % (Manual) 18 H (4-12) % Eosinophils % (Manual) 1 (0-5) % Anisocytosis Few Sodium 139 (135-145) mmol/L Potassium 4.0 D (3.5-5.3) mmol/L Chloride 102 D (100-110) mmol/L Carbon Dioxide 29 (21-32) mmol/L BUN 25 H (7-18) mg/dL Creatinine 1.4 H (0.55-1.02) mg/dL Est Cr Clr Drug Dosing 22.53 mL/min Estimated GFR (MDRD) 35 L (>60) BUN/Creatinine Ratio 17.9 (9-20) Glucose 96 (80-116) mg/dL Calcium 9.5 (8.6-10.2) mg/dL C-Reactive Protein 0.6 (0.5-0.9) mg/dL NT-Pro-B Natriuret Pep 98786 H* (<=450) pg/mL Med Orders - Current: Current Medications Acetaminophen (Tylenol) 650 mg PO Q4H PRN PRN Reason: Pain (Mild 1-3)/fever Last Admin: 10/03/17 16:32 Dose: 650 mg Amiodarone HCl (Cordarone) 100 mg PO DAILY [facility] Last Admin: 10/03/17 09:25 Dose: 100 mg Enoxaparin Sodium (Lovenox) 30 mg SUBCUT Q24H [facility] Last Admin: 10/03/17 18:01 Dose: 30 mg Sodium Chloride (Normal Saline) 250 mls @ 0 mls/hr IV ASDIRECTED [facility] PRN Reason: KVO Last Admin: 10/02/17 13:10 Dose: 50 mls/hr Metoprolol Tartrate (Lopressor) 12.5 mg PO Q6H [facility] Potassium Chloride (Klor-Con M20) 20 meq PO DAILY [facility] Sodium Chloride (Saline Flush) 10 ml FLUSH ASDIRECTED PRN PRN Reason: Keep Vein Open Last Admin: 10/03/17 00:29 Dose: 10 ml Discontinued Medications Carvedilol (Coreg) 3.125 mg PO BIDMEALS [facility] Last Admin: 10/02/17 14:12 Dose: Not Given Carvedilol (Coreg) 1.563 mg PO BIDMEALS [facility] Last Admin: 10/03/17 10:15 Dose: Not Given Furosemide (Lasix) 40 mg IVPUSH Q6H [facility] Last Admin: 10/03/17 05:58 Dose: 40 mg Potassium Chloride 20 meq/ (Premix) 100 mls @ 50 mls/hr IV ONETIME ONE Stop: 10/02/17 12:50 Last Admin: 10/02/17 12:46 Dose: 50 mls/hr Iopamidol (Isovue-370 (76%)) 75 ml IV ONETIME ONE Stop: 10/01/17 12:51 Lisinopril (Prinivil) 2.5 mg PO DAILY [facility] Last Admin: 10/01/17 19:10 Dose: Not Given Lisinopril (Prinivil) Confirm Administered Dose 5 mg .ROUTE .STK-MED ONE Stop: 10/01/17 18:50 Last Admin: 10/01/17 21:14 Dose: Not Given Lisinopril (Prinivil) 2.5 mg PO DAILY [facility] Last Admin: 10/02/17 12:09 Dose: Not Given Lisinopril (Prinivil) 2.5 mg PO DAILY [facility] Metoprolol Tartrate (Lopressor) 25 mg PO Q6H [facility] Last Admin: 10/04/17 03:30 Dose: Not Given Potassium Chloride (Klor-Con M20) 20 meq PO DAILY [facility] Last Admin: 10/03/17 10:40 Dose: 20 meq Potassium Chloride (Klor-Con M20) 40 meq PO ONETIME ONE Stop: 10/02/17 04:15 Last Admin: 10/02/17 04:35 Dose: 40 meq Potassium Chloride (Klor-Con M20) 40 meq PO DAILY [facility] Potassium Chloride (Klor-Con M20) 20 meq PO ONETIME ONE Stop: 10/03/17 09:20 Last Admin: 10/03/17 10:15 Dose: 20 meq Sodium Chloride (Sodium Chloride) 1 gm PO ASDIRECTED [facility] - Exam Extremities: Normal Range of Motion (On passive range of motion of the right shoulder she does have some pain on during flexion and extension as well as internal rotation. Consistent with osteoarthritis. No impingement sign. No tenderness along the clavicle or acromion. No warmth or swelling. Equal paving stone installer strength bilaterally.) Physical Findings Comments:: eneral: Alert, Oriented, Cooperative. Smiling. No: no distress, HEENT: Conjunctiva Clear, Mucosa Moist & [place]. Neck: Supple, Trachea Midline. Lungs: Minimal Rales (lower lobes) with aeration to the bases improved significantly bilaterally. Cardiovascular: Regular Rate, Regular Rhythm. No: Gallop/S3, Gallop/S4. No events on tele overnight. GI/Abdominal Exam: Normal Bowel Sounds, Soft, Non-Tender, No Distention Extremities: Non-Tender. No: Joint Swelling, Kelton's Sign, Increased Warmth Skin: Warm, Dry. Neurological: Strength Equal Bilateral, Normal Speech, Normal Tone Neuro Extensive - Mental Status: Normal Mood/Affect, Normal Cognition - Problem List & Annotations (1) CHF, Congestive heart failure SNOMED Code(s): 26873918 Code(s): I50.9 - HEART FAILURE, UNSPECIFIED Status: Acute Priority: High Current Visit: Yes (2) Pleural effusion due to CHF (congestive heart failure) SNOMED Code(s): 95549688 Code(s): I50.9 - HEART FAILURE, UNSPECIFIED Status: Acute Priority: High Current Visit: Yes (3) Hypotension, iatrogenic SNOMED Code(s): 350094288 Code(s): I95.89 - OTHER HYPOTENSION Status: Acute Priority: High Current Visit: Yes (4) Acute renal insufficiency SNOMED Code(s): 974141954 Code(s): N28.9 - DISORDER OF KIDNEY AND URETER, UNSPECIFIED Status: Acute Current Visit: Yes (5) Hypokalemia SNOMED Code(s): 86535559 Code(s): E87.6 - HYPOKALEMIA Status: Acute Current Visit: Yes (6) Thrombocytopenia SNOMED Code(s): 789421065 Code(s): D69.6 - THROMBOCYTOPENIA, UNSPECIFIED Status: Chronic Current Visit: Yes (7) terminal worker current use of antiarrhythmic medical therapy SNOMED Code(s): 969459564 Code(s): Z79.899 - OTHER DONOR SERVICES COORDINATOR (CURRENT) DRUG THERAPY Status: Acute Current Visit: Yes (8) Diabetes mellitus SNOMED Code(s): 98834364 Code(s): E11.9 - TYPE 2 DIABETES MELLITUS WITHOUT COMPLICATIONS Status: Chronic Current Visit: Yes Qualifiers: Diabetes mellitus type: type 2 Diabetes mellitus complication status: without complication Diabetes mellitus residential insulin use: without residential use Qualified Code(s): E11.9 - Type 2 diabetes mellitus without complications (9) Hypertension SNOMED Code(s): 21455795 Code(s): I10 - ESSENTIAL (PRIMARY) HYPERTENSION Status: Chronic Current Visit: Yes Qualifiers: Hypertension type: essential hypertension Qualified Code(s): I10 - Essential (primary) hypertension (10) Anemia SNOMED Code(s): 904490800 Code(s): D64.9 - ANEMIA, UNSPECIFIED Status: Chronic Current Visit: Yes (11) Palliative care status SNOMED Code(s): 705162488 Code(s): Z51.5 - ENCOUNTER FOR PALLIATIVE CARE Status: Acute Current Visit: Yes - Problem List Review Problem List Initiated/Reviewed/Updated: Yes - My Orders Last 24 Hours: My Active Orders 10/04/17 08:23 CXR [Chest 2V] [CR] Routine 10/04/17 08:25 TROPONIN I [CHEM] Q4H 10/04/17 08:27 Weight, Daily [Height and Weight] [RC] DAILY EKG 12 Lead [EK] Routine 10/04/17 08:28 EKG Documentation Completion [RC] ASDIRECTED 10/04/17 08:30 Metoprolol Tartrate [Lopressor] 12.5 mg PO Q6H 10/04/17 09:00 Potassium Chloride [Klor-Con M20] 20 meq PO DAILY 10/04/17 12:25 TROPONIN I [CHEM] Q4H 10/03/17 10:33 Activity as Tolerated [RC] .Routine 10/03/17 17:00 EKG 12 Lead [EK] Routine 10/03/17 19:28 EKG Documentation Completion [RC] ASDIRECTED - Assessment Assessment:: Please see above - Plan Plan:: Acute CHF exacerbation clinically and radiographically improved aeration and decreased bilateral pleural effusion on today's exam. Official radiographic interpretation pending. I did compare this to prior film. Urine output continues to remain steady however have dried her out a little bit and GFR has decreased to 35. Sodium and potassium were up slightly but still within normal ranges. Creatinine up a bit 1.4 with BUNs 25. Ratio normal however. IV Lasix 40 mg was discontinued yesterday. Since then she's had a little over a liter out. Making total urine output roughly 5000 mL over stay. Weight loss is roughly 7 pounds. Her potassium is now back to normal. I will decrease her oral potassium back to home dose to 20 mEq daily. She's had no events on telemetry. However she was having some bilateral shoulder pain, with slight increase in shortness of breath and overall not feeling well roughly around 7 pM EKG was performed without acute findings suggestive of ischemia, blocks or other rhythm abnormalities. This was interpreted by our ER physician. I am repeating this this morning along with troponins 2. Vital signs 18-20 respirations with 92-95 % O2 sats on room air pulses run 80s bpm,however with her blood pressure running on the low side 80s to 90s systolic over 60s diastolic. She received no Coreg or lisinopril yesterday and had switch her back on metoprolol selective beta adela. Started this initially at immediate acting 25 mg every 6 hours.however she continued to be hypotensive. He cut this dose in half to 12.5 mg immediate release every 6 hours and see if this helps with the blood pressure and continued rate control. Prior dosing at home was Toprol-XL 25 mg twice a day. We'll stop free water fluid restriction. Continue her low-sodium 2g diet. We'll continue strict ins and outs. IV remains saline locked. Again not clinically consistent with pneumonia no antibiotics on board at this time. We'll see how she does with these changes as well as evaluate laboratory and radiographic findings today. lives with daughter. continuous tele due to med changes. labs reviewed and repeat in am. We'll have PT OT continue to work with her while here. Anticipate discharge 24-48 hours with close outpatient follow- up.
[2017-10-04] MEDS ORDERED: Lisinopril 2.5 MG Tab PO SCH (09:00)
[2017-10-04] MEDS ORDERED: Potassium Chloride 20 MEQ Tab.ER PO SCH (09:00)
[2017-10-04] MEDS: Potassium Chloride 20 MEQ Tab.ER PO SCH (09:05)
[2017-10-04] MEDS: Amiodarone 200 MG Tab PO SCH (09:05)
[2017-10-04] MEDS: Acetaminophen 325 MG Tab PO PRN (12:14)
[2017-10-04] MEDS: Furosemide 80 MG Tab PO SCH (15:01)
[2017-10-04] MEDS: Enoxaparin 30 MG/0.3 ML Syringe SUBCUT SCH (18:31)
[2017-10-05] MEDS: Acetaminophen 325 MG Tab PO PRN (00:12)
[2017-10-05] MEDS: Metoprolol Tartrate 25 MG Tab PO SCH (03:21)
--- NOTE | 2017-10-05 08:45 | PCM.PN ---
- General Info Date of Service: 10/05/17 Subjective Update: patient is sitting at edge of her bed this morning. She is smiling and making good eye contact speaking in complete sentences without any apparent shortness of breath or dyspnea. Tells me she is feeling much better and is ready to go home. She has been ambulating in the [place] with her walker. She is tolerating her diet. She's had good urine output. She denies any headache. Tells me she has not felt feverish she's had no chills. Shoulder feels better with Tylenol. She's had no chest pain or pressure no pleuritic pain no mid back epigastric or abdominal pain. She denies any palpitations. Denies any sore throat difficulty swallowing or coughing. She worked with physical therapy this morning he felt she is doing pretty good but could still benefit from home therapy for the fact that she lives with her daughter and has to climb stairs as well as will need to continue to monitor weight, blood pressures due to medication changes. Examination of chest films this morning shows continued improvement with regards to bilateral pleural effusion and aeration throughout. Her primary PCP is Dr. Carlos Smalls. [facility]. Her primary us marketing director is Dr. Wynn. Olson at [facility] - Review of Systems Systems Review Comment:: pertinent positives and negatives relevant to today's visit please see history of present illness - Patient Data Vitals - Most Recent: Last Vital Signs Temp 98.2 F 10/05/17 03:23 Pulse 72 10/05/17 03:23 Resp 18 10/05/17 03:23 BP 103/68 10/05/17 03:23 Pulse Ox 98 10/05/17 03:23 Weight - Most Recent: 67.222 kg I&O - Last 24 Hours: Intake & Output 10/04/17 10/05/17 22:59 06:59 Intake Total 400 Output Total 250 775 Balance 150 -775 Admission Weight: 69.49 kg Yesterday's weight: 66.814 kg Today's weight: 67.222 kg Weight is down 5 pounds from admission Imaging Impressions - Last 24 Hours: chest x-ray PA and lateral shows improved aeration throughout continued bilateral pleural effusion right greater than left significantly decreased from admission Lab Results Last 24 Hours: Laboratory Results - last 24 hr 10/04/17 10/04/17 Range/Units 07:12 12:25 Troponin I 0.032 0.026 (<0.017-0.056) ng/mL Med Orders - Current: Current Medications Acetaminophen (Tylenol) 650 mg PO Q4H PRN PRN Reason: Pain (Mild 1-3)/fever Last Admin: 10/05/17 00:12 Dose: 650 mg Amiodarone HCl (Cordarone) 100 mg PO DAILY [facility] Last Admin: 10/04/17 09:05 Dose: 100 mg Enoxaparin Sodium (Lovenox) 30 mg SUBCUT Q24H [facility] Last Admin: 10/04/17 18:31 Dose: 30 mg Furosemide (Lasix) 80 mg PO DAILY [facility] Last Admin: 10/04/17 15:01 Dose: 80 mg Sodium Chloride (Normal Saline) 250 mls @ 0 mls/hr IV ASDIRECTED [facility] PRN Reason: KVO Last Admin: 10/02/17 13:10 Dose: 50 mls/hr Metoprolol Succinate (Toprol Xl) 12.5 mg PO BID [facility] Potassium Chloride (Klor-Con M20) 20 meq PO DAILY [facility] Last Admin: 10/04/17 09:05 Dose: 20 meq Sodium Chloride (Saline Flush) 10 ml FLUSH ASDIRECTED PRN PRN Reason: Keep Vein Open Last Admin: 10/03/17 00:29 Dose: 10 ml Discontinued Medications Carvedilol (Coreg) 3.125 mg PO BIDMEALS [facility] Last Admin: 10/02/17 14:12 Dose: Not Given Carvedilol (Coreg) 1.563 mg PO BIDMEALS [facility] Last Admin: 10/03/17 10:15 Dose: Not Given Furosemide (Lasix) 40 mg IVPUSH Q6H [facility] Last Admin: 10/03/17 05:58 Dose: 40 mg Potassium Chloride 20 meq/ (Premix) 100 mls @ 50 mls/hr IV ONETIME ONE Stop: 10/02/17 12:50 Last Admin: 10/02/17 12:46 Dose: 50 mls/hr Iopamidol (Isovue-370 (76%)) 75 ml IV ONETIME ONE Stop: 10/01/17 12:51 Lisinopril (Prinivil) 2.5 mg PO DAILY [facility] Last Admin: 10/01/17 19:10 Dose: Not Given Lisinopril (Prinivil) Confirm Administered Dose 5 mg .ROUTE .STK-MED ONE Stop: 10/01/17 18:50 Last Admin: 10/01/17 21:14 Dose: Not Given Lisinopril (Prinivil) 2.5 mg PO DAILY [facility] Last Admin: 10/02/17 12:09 Dose: Not Given Lisinopril (Prinivil) 2.5 mg PO DAILY [facility] Metoprolol Tartrate (Lopressor) 25 mg PO Q6H [facility] Last Admin: 10/04/17 03:30 Dose: Not Given Metoprolol Tartrate (Lopressor) 12.5 mg PO Q6H [facility] Last Admin: 10/05/17 03:21 Dose: 12.5 mg Potassium Chloride (Klor-Con M20) 20 meq PO DAILY [facility] Last Admin: 10/03/17 10:40 Dose: 20 meq Potassium Chloride (Klor-Con M20) 40 meq PO ONETIME ONE Stop: 10/02/17 04:15 Last Admin: 10/02/17 04:35 Dose: 40 meq Potassium Chloride (Klor-Con M20) 40 meq PO DAILY [facility] Potassium Chloride (Klor-Con M20) 20 meq PO ONETIME ONE Stop: 10/03/17 09:20 Last Admin: 10/03/17 10:15 Dose: 20 meq Sodium Chloride (Sodium Chloride) 1 gm PO ASDIRECTED [facility] - Exam Physical Findings Comments:: General: Alert, Oriented, Cooperative. Smiling. No: no distress, HEENT: Conjunctiva Clear, Mucosa Moist & [place]. Neck: Supple, Trachea Midline. Lungs: Minimal Rales (lower lobes) with aeration to the bases improved significantly bilaterally. Cardiovascular: Regular Rate, Regular Rhythm. No: Gallop/S3, Gallop/S4. No events on tele overnight. GI/Abdominal Exam: Normal Bowel Sounds, Soft, Non-Tender, No Distention Extremities: Non-Tender. No: Joint Swelling, Kelton's Sign, Increased Warmth Skin: Warm, Dry. Neurological: Strength Equal Bilateral, Normal Speech, Normal Tone Neuro Extensive - Mental Status: Normal Mood/Affect, Normal Cognition - Problem List & Annotations (1) CHF, Congestive heart failure SNOMED Code(s): 21669629 Code(s): I50.9 - HEART FAILURE, UNSPECIFIED Status: Acute Priority: High Current Visit: Yes (2) Pleural effusion due to CHF (congestive heart failure) SNOMED Code(s): 08222303 Code(s): I50.9 - HEART FAILURE, UNSPECIFIED Status: Acute Priority: High Current Visit: Yes (3) Hypotension, iatrogenic SNOMED Code(s): 810355105 Code(s): I95.89 - OTHER HYPOTENSION Status: Resolved Priority: High Current Visit: Yes (4) Acute renal insufficiency SNOMED Code(s): 029642240 Code(s): N28.9 - DISORDER OF KIDNEY AND URETER, UNSPECIFIED Status: Resolved Current Visit: Yes (5) Hypokalemia SNOMED Code(s): 27817540 Code(s): E87.6 - HYPOKALEMIA Status: Resolved Current Visit: Yes (6) Thrombocytopenia SNOMED Code(s): 035082969 Code(s): D69.6 - THROMBOCYTOPENIA, UNSPECIFIED Status: Chronic Current Visit: Yes (7) technician terminal and repeater current use of antiarrhythmic medical therapy SNOMED Code(s): 233176097 Code(s): Z79.899 - OTHER SPECIAL AGENT SECRET SERVICE (CURRENT) DRUG THERAPY Status: Chronic Current Visit: Yes (8) Diabetes mellitus SNOMED Code(s): 99261727 Code(s): E11.9 - TYPE 2 DIABETES MELLITUS WITHOUT COMPLICATIONS Status: Chronic Current Visit: Yes Qualifiers: Diabetes mellitus type: type 2 Diabetes mellitus complication status: without complication Diabetes mellitus jail insulin use: without jail use Qualified Code(s): E11.9 - Type 2 diabetes mellitus without complications (9) Hypertension SNOMED Code(s): 96873676 Code(s): I10 - ESSENTIAL (PRIMARY) HYPERTENSION Status: Chronic Current Visit: Yes Qualifiers: Hypertension type: essential hypertension Qualified Code(s): I10 - Essential (primary) hypertension (10) Anemia SNOMED Code(s): 244591326 Code(s): D64.9 - ANEMIA, UNSPECIFIED Status: Ruled-out Current Visit: Yes (11) Palliative care status SNOMED Code(s): 982874965 Code(s): Z51.5 - ENCOUNTER FOR PALLIATIVE CARE Status: Chronic Current Visit: Yes - Problem List Review Problem List Initiated/Reviewed/Updated: Yes - My Orders Last 24 Hours: My Active Orders 10/05/17 08:43 IS (RT) [RT Incentive Spirometry] [RC] Q2HWA 10/05/17 09:00 Metoprolol Succinate [Toprol XL] 12.5 mg PO BID - Assessment Assessment:: Please see above - Plan Plan:: Acute CHF exacerbation clinically and radiographically improved aeration and decreased bilateral pleural effusion on today's exam. I did compare this to prior film. Urine output continues to remain steady however have dried her out a little bit and GFR has decreased to 35. Sodium and potassium were up slightly but still within normal ranges. Creatinine up a bit 1.4 with BUNs 25. Ratio normal however. Regular home oral potassium 80 mg daily was started yesterday. Since then she's had 1175 mL out in the last 24 hours. Weight has come up half a pound but overall down roughly 5-6 pounds. Her potassium is now back to normal. Her oral potassium is back to home dose to 20 mEq daily. She's had no events on telemetry. troponins have been negative 2. Vital signs 18-20 respirations with 94-98% O2 sats on room air pulses run 70-80s bpm, and her blood pressure has improved to consistent 90-103s systolic over 60s diastolic. She received no Coreg or lisinopril x2d and had switch her back on metoprolol selective beta adela. Started this initially at immediate acting 25 mg every 6 hours.however she continued to be hypotensive. He cut this dose in half to 12.5 mg immediate release at first 25 mg every 6 hours for continue to have low blood pressure so switched to 12.5 mg every 6 hours and over the 24 hours has done quite well. We'll therefore switch her back to Toprol-XL at a dose of 12.5 mg twice a day. This will be half her home dose. We continued her 1500 mL fluid restriction as per cardiology she has done well with this. Continued her low- sodium 2g diet. Again not clinically consistent with pneumonia no antibiotics on board at this time. I recommending outpatient pleural tap on the right to evaluate for any potential malignant cells versus strict effusion if deemed necessary per PCP. Lives with daughter. discharge today with close outpatient follow-up.
[2017-10-05] MEDS: Potassium Chloride 20 MEQ Tab.ER PO SCH (08:58)
[2017-10-05] MEDS: Furosemide 80 MG Tab PO SCH (08:58)
[2017-10-05] MEDS: Amiodarone 200 MG Tab PO SCH (08:59)
[2017-10-05] MEDS ORDERED: Metoprolol Succinate 25 MG Tab.ER PO SCH (09:00)
--- NOTE | 2017-10-05 10:53 | CR ---
INDICATION: Bilateral pleural effusion, status post diuresis. Attempt better inspiration. CHEST: PA and lateral views of the chest 10/02/2017 were compared with 2016 and 08/14/2016, revealing the heart to appear enlarged, the aorta is slightly tortuous with calcification in the arch. No definite CHF is seen. Overlying EKG leads are noted. Bibasilar pleuroparenchymal changes are noted appearing decreased on the left and perhaps slightly increased on the right or stable on the right. Findings are compatible with resolving pneumonia and pleuritis, but somewhat delayed on the right compared with the left. No other change or new acute process was identified. MTDD
--- NOTE | 2017-10-05 10:53 | CR ---
INDICATION: Bilateral pleural effusion/CHF - evaluate. CHEST: PA and lateral views of the chest 10/04/2017, compared with 10/02/2017 and 10/01/2017, revealed further decrease in pleural effusion on the left, but decrease in effusion on the right now seen. No definite evidence of CHF is identified. Findings remain compatible with resolving pneumonia and pleuritis in a patient with ASHD. A new acute process is not seen. IMPRESSION: Improving appearance of the chest. No new acute process. MTDD
[2017-10-05 12:30] VITALS: BP 100/64
--- NOTE | 2017-10-05 14:10 | PCM.DCSUM1 ---
Discharge Summary - Hospital Course HPI Initial Comments: 89-year-old female admitted for increasing dyspnea with exertion, weight gain, shortness of breath at rest, fatigue and overall feeling of diminished well- being. She has congestive heart failure with a known ejection fraction roughly 35-40%. Recently seen by her herbarium curator and had her oral Lasix increased from 60 mg daily to 80 mg daily. Daughter states her weight is up roughly 3-5 pounds. Patient normally is ambulatory with a cane or walker and does go upstairs. She lives with her daughter but was unable to do these things without significant difficulty.she has not been having any chest pain or pressure and she denied any falls or near syncopal episodes. Denies any other med changes after seeing her herbarium curator. Her primary PCP is Dr. Carlos Olson [facility]. Her primary herbarium curator is Dr. Wynn. Olson at [facility] - Related Data Allergies/Adverse Reactions: Allergies Allergy/AdvReac Type Severity Reaction Status Date / Time atorvastatin calcium AdvReac Joint Pain Verified 10/01/17 10:40 [From Lipitor] Home Medsprior to admission Amiodarone [Cordarone] 100 mg PO DAILY 07/05/16 [History] Furosemide 60 mg PO DAILY PRN 07/05/16 [History] Metoprolol Succinate 25 mg PO BID 08/14/16 [History] Potassium Chloride 20 meq PO DAILY 10/01/17 [History] Sodium Chloride 1 gm PO ASDIRECTED 10/01/17 [History] - Discharge Data Discharge Date: 10/05/17 Discharge Disposition: Home, W Home Health Agency 06 Condition: Good - Discharge Diagnosis/Problem(s) (1) CHF, Congestive heart failure SNOMED Code(s): 57029312 ICD Code: I50.9 - HEART FAILURE, UNSPECIFIED Status: Acute Priority: High Current Visit: Yes (2) Pleural effusion due to CHF (congestive heart failure) SNOMED Code(s): 84519085 ICD Code: I50.9 - HEART FAILURE, UNSPECIFIED Status: Acute Priority: High Current Visit: Yes (3) Hypotension, iatrogenic SNOMED Code(s): 468420738 ICD Code: I95.89 - OTHER HYPOTENSION Status: Resolved Priority: High Current Visit: Yes (4) Acute renal insufficiency SNOMED Code(s): 451077294 ICD Code: N28.9 - DISORDER OF KIDNEY AND URETER, UNSPECIFIED Status: Resolved Current Visit: Yes (5) Hypokalemia SNOMED Code(s): 65685107 ICD Code: E87.6 - HYPOKALEMIA Status: Resolved Current Visit: Yes (6) Thrombocytopenia SNOMED Code(s): 017050965 ICD Code: D69.6 - THROMBOCYTOPENIA, UNSPECIFIED Status: Chronic Current Visit: Yes (7) residential current use of antiarrhythmic medical therapy SNOMED Code(s): 251513271 ICD Code: Z79.899 - OTHER TRAVELING 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 (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) DRUG THERAPY Status: Chronic Current Visit: Yes (8) Diabetes mellitus SNOMED Code(s): 61148617 ICD Code: E11.9 - TYPE 2 DIABETES MELLITUS WITHOUT COMPLICATIONS Status: Chronic Current Visit: Yes Qualifiers: Diabetes mellitus type: type 2 Diabetes mellitus complication status: without complication 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: without 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 home use Qualified Code(s): E11.9 - Type 2 diabetes mellitus without complications (9) Hypertension SNOMED Code(s): 27756150 ICD Code: I10 - ESSENTIAL (PRIMARY) HYPERTENSION Status: Chronic Current Visit: Yes Qualifiers: Hypertension type: essential hypertension Qualified Code(s): I10 - Essential (primary) hypertension (10) Anemia SNOMED Code(s): 815234403 ICD Code: D64.9 - ANEMIA, UNSPECIFIED Status: Ruled-out Current Visit: Yes (11) Palliative care status SNOMED Code(s): 203660058 ICD Code: Z51.5 - ENCOUNTER FOR PALLIATIVE CARE Status: Chronic Current Visit: Yes - Patient Summary/Data Consults: Consultations 10/02/17 11:04 OT Evaluation and Treatment [CONS] Routine Please Evaluate and Treat. OT Reason for Consult: Strengthening This query below is only for informational purposes and is not editable. Admission Diagnosis/Problem: Congestive heart failure PT Evaluation and Treatment [CONS] Routine Please Evaluate and Treat. PT Reason for Consult: Ambulation This query below is only for informational purposes and is not editable. Admission Diagnosis/Problem: Congestive heart failure Recommended Follow-up Testing/Procedures: recommend follow-up chest x-ray in the next 1-2 weeks. Also consideration pleural tap to evaluate the effusion for possible malignancy Hospital Course: please see discharge summary/plan - Patient Instructions Diet: Heart Healthy Diet, Low Sodium Fluid Restriction: 1500 mL Activity: As Tolerated, Cough & Deep Breathe Showering/Bathing: May Shower Notify Provider of: Fever, Nausea and/or Vomiting Other/Special Instructions: increasing dyspnea with exertion or at rest any chest pain or pressure or weight gain greater than 3 pounds in 1 day or 5 pounds in 1 week. - Discharge Plan Prescriptions/Med Rec: Furosemide [Lasix] 80 mg PO DAILY #10 tablet Metoprolol Succinate [Toprol XL] 12.5 mg PO BID #30 tab.er Home Medications: Home Meds Amiodarone [Cordarone] 100 mg PO DAILY 07/05/16 [History] Potassium Chloride 20 meq PO DAILY 10/01/17 [History] Sodium Chloride 1 gm PO ASDIRECTED 10/01/17 [History] Acetaminophen [Tylenol] 650 mg PO Q4H PRN tablet 10/05/17 [Rx] Furosemide [Lasix] 80 mg PO DAILY #10 tablet 10/05/17 [Rx] Metoprolol Succinate [Toprol XL] 12.5 mg PO BID #30 tab.er 10/05/17 [Rx] Patient Handouts: Heart Failure, [id number], Fall Prevention in Hospitals, Adult, Venous Thromboembolism Prevention Referrals: Chintan Mendoza MD [Primary Care Provider] - - Discharge Summary/Plan Comment DC Time >30 min.: Yes Discharge Summary/Plan Comment: Acute CHF exacerbation clinically and radiographically improved aeration and decreased bilateral pleural effusion on today's exam. I did compare this to prior film. Urine output continues to remain steady however have dried her out a little bit and GFR has decreased to 35. Sodium and potassium were up slightly but still within normal ranges. Creatinine up a bit 1.4 with BUNs 25. Ratio normal however. Regular home oral potassium 80 mg daily was started yesterday. Since then she's had 1175 mL out in the last 24 hours. Weight has come up half a pound but overall down roughly 5-6 pounds. Her potassium is now back to normal. Her oral potassium is back to home dose to 20 mEq daily. She's had no events on telemetry. troponins have been negative 2. Vital signs 18-20 respirations with 94-98% O2 sats on room air pulses run 70-80s bpm, and her blood pressure has improved to consistent 90-103s systolic over 60s diastolic. She received no Coreg or lisinopril x2d and had switch her back on metoprolol selective beta adela. Started this initially at immediate acting 25 mg every 6 hours.however she continued to be hypotensive. He cut this dose in half to 12.5 mg immediate release at first 25 mg every 6 hours for continue to have low blood pressure so switched to 12.5 mg every 6 hours and over the 24 hours has done quite well. We'll therefore switch her back to Toprol-XL at a dose of 12.5 mg twice a day. This will be half her home dose. We continued her 1500 mL fluid restriction as per cardiology she has done well with this. Continued her low- sodium 2g diet. Again not clinically consistent with pneumonia no antibiotics on board at this time. I recommending outpatient pleural tap on the right to evaluate for any potential malignant cells versus strict effusion if deemed necessary per PCP. Lives with daughter. discharge today with close outpatient follow-up. - General Info Subjective Update: patient is sitting at edge of her bed this morning. She is smiling and making good eye contact speaking in complete sentences without any apparent shortness of breath or dyspnea. Tells me she is feeling much better and is ready to go home. She has been ambulating in the [place] with her walker. She is tolerating her diet. She's had good urine output. She denies any headache. Tells me she has not felt feverish she's had no chills. Shoulder feels better with Tylenol. She's had no chest pain or pressure no pleuritic pain no mid back epigastric or abdominal pain. She denies any palpitations. Denies any sore throat difficulty swallowing or coughing. She worked with physical therapy this morning he felt she is doing pretty good but could still benefit from home therapy for the fact that she lives with her daughter and has to climb stairs as well as will need to continue to monitor weight, blood pressures due to medication changes. Examination of chest films this morning shows continued improvement with regards to bilateral pleural effusion and aeration throughout. Her primary PCP is Dr. Carlos Smalls. [facility]. Her primary herbarium curator is Dr. Valentine. Whitney at [facility] - Review of Systems Systems Review Comment: for pertinent positives and negatives relevant to today's visit please see history of present illness - Patient Data Vitals - Most Recent: Vital Signs - 24 hr 10/04/17 10/04/17 10/04/17 15:00 15:50 21:00 Temperature [ 97 F 97.5 F Axillary] Temperature [ Oral] Pulse, Peripheral Pulse, 83 80 78 Peripheral [ Left Pulse Oximetry] Pulse, Peripheral [ Right Pulse Oximetry] Respiratory 18 16 Rate Blood Pressure Blood Pressure 92/61 93/65 102/66 [Left Upper Arm ] Blood Pressure [Right Upper Arm] O2 Sat by Pulse 94 L 98 Oximetry O2 Sat by Pulse Oximetry [Room Air] 10/04/17 10/05/17 10/05/17 21:15 00:00 03:21 Temperature [ Axillary] Temperature [ 97.2 F Oral] Pulse, 82 72 Peripheral Pulse, 85 Peripheral [ Left Pulse Oximetry] Pulse, Peripheral [ Right Pulse Oximetry] Respiratory 16 Rate Blood Pressure 102/66 103/68 Blood Pressure 98/66 [Left Upper Arm ] Blood Pressure [Right Upper Arm] O2 Sat by Pulse 98 Oximetry O2 Sat by Pulse Oximetry [Room Air] 10/05/17 10/05/17 10/05/17 03:23 07:30 09:25 Temperature [ Axillary] Temperature [ 98.2 F 97.7 F Oral] Pulse, 83 Peripheral Pulse, 72 84 Peripheral [ Left Pulse Oximetry] Pulse, Peripheral [ Right Pulse Oximetry] Respiratory 18 20 Rate Blood Pressure 91/62 Blood Pressure 103/68 [Left Upper Arm ] Blood Pressure 91/62 [Right Upper Arm] O2 Sat by Pulse 98 95 Oximetry O2 Sat by Pulse Oximetry [Room Air] 10/05/17 10/05/17 10:17 12:20 Temperature [ Axillary] Temperature [ 97.5 F Oral] Pulse, Peripheral Pulse, 84 Peripheral [ Left Pulse Oximetry] Pulse, 82 Peripheral [ Right Pulse Oximetry] Respiratory 20 Rate Blood Pressure Blood Pressure 100/64 [Left Upper Arm ] Blood Pressure [Right Upper Arm] O2 Sat by Pulse 99 Oximetry O2 Sat by Pulse 95 Oximetry [Room Air] Weight - Most Recent: 67.222 kg I&O - Last 24 hours: Intake & Output 10/04/17 10/05/17 10/05/17 22:59 06:59 14:59 Intake Total 400 790 Output Total 250 775 425 Balance 150 -775 365 Imaging Impressions - Last 24 hrs: chest x-ray 3 CT angiogram chest Lab Results - Last 24 hrs: Laboratory Tests 10/01/17 10/01/17 10/01/17 Range/Units 11:10 11:10 11:10 WBC 5.1 (4.5-12.0) X10-3/uL RBC 4.34 (3.23-5.20) x10(6)uL Hgb 14.2 D (11.5-15.5) g/dL Hct 43.4 D (30.0-51.3) % MCV 100.1 H (80-96) fL MCH 32.7 (27.7-33.6) pg MCHC 32.7 (32.2-35.4) g/dL RDW 16.5 H (11.5-15.5) % Plt Count 138 (125-369) X10(3)uL MPV 9.0 (7.4-10.4) fL Neut % (Auto) 67.0 (46-82) % Lymph % (Auto) 18.4 (13-37) % [place] % (Auto) 12.9 H (4-12) % Eos % (Auto) 1 (1.0-5.0) % Baso % (Auto) 1 (0-2) % Neut # (Auto) 3.4 (1.6-8.3) # Lymph # (Auto) 0.9 (0.6-5.0) # [place] # (Auto) 0.7 (0.0-1.3) # Eos # (Auto) 0.1 (0.0-0.8) # Baso # (Auto) 0.0 (0.0-0.2) # Add Manual Diff Neutrophils % (Manual) (46-82) % Lymphocytes % (Manual) (13-37) % Monocytes % (Manual) (4-12) % Eosinophils % (Manual) (0-5) % Hypersegmented Neuts Anisocytosis ESR (0-20) mm/hr D-Dimer, Quantitative (100-400) ng/mL Sodium 142 (135-145) mmol/L Potassium 3.6 (3.5-5.3) mmol/L Chloride 105 (100-110) mmol/L Carbon Dioxide 27 (21-32) mmol/L BUN 23 H (7-18) mg/dL Creatinine 1.4 H (0.55-1.02) mg/dL Est Cr Clr Drug Dosing 22.53 mL/min Estimated GFR (MDRD) 35 L (>60) BUN/Creatinine Ratio 16.4 (9-20) Glucose 155 H (80-116) mg/dL Calcium 9.2 (8.6-10.2) mg/dL Magnesium 2.0 (1.8-2.5) mg/dL Total Bilirubin 1.4 H (0.1-1.3) mg/dL AST 33 H (5-25) IU/L ALT 29 (12-36) U/L Alkaline Phosphatase 121 H (56-112) IU/L Troponin I 0.028 (<0.017-0.056) ng/mL C-Reactive Protein (0.5-0.9) mg/dL NT-Pro-B Natriuret Pep 76726 H* (<=450) pg/mL Total Protein 6.7 (6.0-8.0) g/dL Albumin 3.3 (2.9-4.5) g/dL Globulin 3.4 g/dL Albumin/Globulin Ratio 1.0 TSH, Ultra Sensitive 1.13 (0.36-3.74) IU/mL Urine Color (YELLOW) Urine Appearance (CLEAR) Urine pH (5.0-6.5) Ur Specific [place] (1.010-1.025) Urine Protein (NEGATIVE) mg/dL Urine Glucose (UA) (NEGATIVE) mg/dL Urine Ketones (NEGATIVE) mg/dL Urine Occult Blood (NEGATIVE) Urine Nitrite (NEGATIVE) Urine Bilirubin (NEGATIVE) Urine Urobilinogen (NEGATIVE) mg/dL Ur Leukocyte Esterase (NEGATIVE) Urine RBC (0) Urine WBC (0) Ur Squamous Epith Cells (NS,R,O) Urine Bacteria (NS) 10/01/17 10/01/17 10/01/17 Range/Units 11:10 11:10 11:10 WBC (4.5-12.0) X10-3/uL RBC (3.23-5.20) x10(6)uL Hgb (11.5-15.5) g/dL Hct (30.0-51.3) % MCV (80-96) fL MCH (27.7-33.6) pg MCHC (32.2-35.4) g/dL RDW (11.5-15.5) % Plt Count (125-369) X10(3)uL MPV (7.4-10.4) fL Neut % (Auto) (46-82) % Lymph % (Auto) (13-37) % [place] % (Auto) (4-12) % Eos % (Auto) (1.0-5.0) % Baso % (Auto) (0-2) % Neut # (Auto) (1.6-8.3) # Lymph # (Auto) (0.6-5.0) # [place] # (Auto) (0.0-1.3) # Eos # (Auto) (0.0-0.8) # Baso # (Auto) (0.0-0.2) # Add Manual Diff Neutrophils % (Manual) (46-82) % Lymphocytes % (Manual) (13-37) % Monocytes % (Manual) (4-12) % Eosinophils % (Manual) (0-5) % Hypersegmented Neuts Anisocytosis ESR 5 (0-20) mm/hr D-Dimer, Quantitative 2470 H (100-400) ng/mL Sodium (135-145) mmol/L Potassium (3.5-5.3) mmol/L Chloride (100-110) mmol/L Carbon Dioxide (21-32) mmol/L BUN (7-18) mg/dL Creatinine (0.55-1.02) mg/dL Est Cr Clr Drug Dosing mL/min Estimated GFR (MDRD) (>60) BUN/Creatinine Ratio (9-20) Glucose (80-116) mg/dL Calcium (8.6-10.2) mg/dL Magnesium (1.8-2.5) mg/dL Total Bilirubin (0.1-1.3) mg/dL AST (5-25) IU/L ALT (12-36) U/L Alkaline Phosphatase (56-112) IU/L Troponin I (<0.017-0.056) ng/mL C-Reactive Protein 1.3 H (0.5-0.9) mg/dL NT-Pro-B Natriuret Pep (<=450) pg/mL Total Protein (6.0-8.0) g/dL Albumin (2.9-4.5) g/dL Globulin g/dL Albumin/Globulin Ratio TSH, Ultra Sensitive (0.36-3.74) IU/mL Urine Color (YELLOW) Urine Appearance (CLEAR) Urine pH (5.0-6.5) Ur Specific [place] (1.010-1.025) Urine Protein (NEGATIVE) mg/dL Urine Glucose (UA) (NEGATIVE) mg/dL Urine Ketones (NEGATIVE) mg/dL Urine Occult Blood (NEGATIVE) Urine Nitrite (NEGATIVE) Urine Bilirubin (NEGATIVE) Urine Urobilinogen (NEGATIVE) mg/dL Ur Leukocyte Esterase (NEGATIVE) Urine RBC (0) Urine WBC (0) Ur Squamous Epith Cells (NS,R,O) Urine Bacteria (NS) 10/01/17 10/01/17 10/01/17 Range/Units 11:30 21:00 21:00 WBC (4.5-12.0) X10-3/uL RBC (3.23-5.20) x10(6)uL Hgb (11.5-15.5) g/dL Hct (30.0-51.3) % MCV (80-96) fL MCH (27.7-33.6) pg MCHC (32.2-35.4) g/dL RDW (11.5-15.5) % Plt Count (125-369) X10(3)uL MPV (7.4-10.4) fL Neut % (Auto) (46-82) % Lymph % (Auto) (13-37) % [place] % (Auto) (4-12) % Eos % (Auto) (1.0-5.0) % Baso % (Auto) (0-2) % Neut # (Auto) (1.6-8.3) # Lymph # (Auto) (0.6-5.0) # [place] # (Auto) (0.0-1.3) # Eos # (Auto) (0.0-0.8) # Baso # (Auto) (0.0-0.2) # Add Manual Diff Neutrophils % (Manual) (46-82) % Lymphocytes % (Manual) (13-37) % Monocytes % (Manual) (4-12) % Eosinophils % (Manual) (0-5) % Hypersegmented Neuts Anisocytosis ESR (0-20) mm/hr D-Dimer, Quantitative (100-400) ng/mL Sodium 145 (135-145) mmol/L Potassium 3.0 L (3.5-5.3) mmol/L Chloride (100-110) mmol/L Carbon Dioxide (21-32) mmol/L BUN (7-18) mg/dL Creatinine (0.55-1.02) mg/dL Est Cr Clr Drug Dosing mL/min Estimated GFR (MDRD) (>60) BUN/Creatinine Ratio (9-20) Glucose (80-116) mg/dL Calcium (8.6-10.2) mg/dL Magnesium (1.8-2.5) mg/dL Total Bilirubin (0.1-1.3) mg/dL AST (5-25) IU/L ALT (12-36) U/L Alkaline Phosphatase (56-112) IU/L Troponin I (<0.017-0.056) ng/mL C-Reactive Protein (0.5-0.9) mg/dL NT-Pro-B Natriuret Pep (<=450) pg/mL Total Protein (6.0-8.0) g/dL Albumin (2.9-4.5) g/dL Globulin g/dL Albumin/Globulin Ratio TSH, Ultra Sensitive (0.36-3.74) IU/mL Urine Color Yellow (YELLOW) Urine Appearance Clear (CLEAR) Urine pH 7.0 H (5.0-6.5) Ur Specific [place] 1.015 (1.010-1.025) Urine Protein Negative (NEGATIVE) mg/dL Urine Glucose (UA) Normal (NEGATIVE) mg/dL Urine Ketones Negative (NEGATIVE) mg/dL Urine Occult Blood Negative (NEGATIVE) Urine Nitrite Negative (NEGATIVE) Urine Bilirubin Negative (NEGATIVE) Urine Urobilinogen Normal (NEGATIVE) mg/dL Ur Leukocyte Esterase Negative (NEGATIVE) Urine RBC 0-5 (0) Urine WBC 0-5 (0) Ur Squamous Epith Cells Occasional (NS,R,O) Urine Bacteria Many H (NS) 10/02/17 10/02/17 10/02/17 Range/Units 05:20 05:20 05:20 WBC 4.5 (4.5-12.0) X10-3/uL RBC 4.00 (3.23-5.20) x10(6)uL Hgb 13.0 (11.5-15.5) g/dL Hct 39.2 (30.0-51.3) % MCV 98.2 H (80-96) fL MCH 32.5 (27.7-33.6) pg MCHC 33.2 (32.2-35.4) g/dL RDW 16.4 H (11.5-15.5) % Plt Count 117 L (125-369) X10(3)uL MPV 9.1 (7.4-10.4) fL Neut % (Auto) (46-82) % Lymph % (Auto) (13-37) % [place] % (Auto) (4-12) % Eos % (Auto) (1.0-5.0) % Baso % (Auto) (0-2) % Neut # (Auto) (1.6-8.3) # Lymph # (Auto) (0.6-5.0) # [place] # (Auto) (0.0-1.3) # Eos # (Auto) (0.0-0.8) # Baso # (Auto) (0.0-0.2) # Add Manual Diff Yes Neutrophils % (Manual) 59 (46-82) % Lymphocytes % (Manual) 19 (13-37) % Monocytes % (Manual) 19 H (4-12) % Eosinophils % (Manual) 3 (0-5) % Hypersegmented Neuts Few Anisocytosis Few ESR (0-20) mm/hr D-Dimer, Quantitative (100-400) ng/mL Sodium 144 (135-145) mmol/L Potassium 3.0 L (3.5-5.3) mmol/L Chloride 107 (100-110) mmol/L Carbon Dioxide 28 (21-32) mmol/L BUN 20 H (7-18) mg/dL Creatinine 1.2 H (0.55-1.02) mg/dL Est Cr Clr Drug Dosing 26.29 mL/min Estimated GFR (MDRD) 42 L (>60) BUN/Creatinine Ratio 16.7 (9-20) Glucose 95 (80-116) mg/dL Calcium 8.7 (8.6-10.2) mg/dL Magnesium (1.8-2.5) mg/dL Total Bilirubin (0.1-1.3) mg/dL AST (5-25) IU/L ALT (12-36) U/L Alkaline Phosphatase (56-112) IU/L Troponin I (<0.017-0.056) ng/mL C-Reactive Protein (0.5-0.9) mg/dL NT-Pro-B Natriuret Pep 08045 H* (<=450) pg/mL Total Protein (6.0-8.0) g/dL Albumin (2.9-4.5) g/dL Globulin g/dL Albumin/Globulin Ratio TSH, Ultra Sensitive (0.36-3.74) IU/mL Urine Color (YELLOW) Urine Appearance (CLEAR) Urine pH (5.0-6.5) Ur Specific [place] (1.010-1.025) Urine Protein (NEGATIVE) mg/dL Urine Glucose (UA) (NEGATIVE) mg/dL Urine Ketones (NEGATIVE) mg/dL Urine Occult Blood (NEGATIVE) Urine Nitrite (NEGATIVE) Urine Bilirubin (NEGATIVE) Urine Urobilinogen (NEGATIVE) mg/dL Ur Leukocyte Esterase (NEGATIVE) Urine RBC (0) Urine WBC (0) Ur Squamous Epith Cells (NS,R,O) Urine Bacteria (NS) 10/02/17 10/02/17 10/03/17 Range/Units 13:00 19:00 06:25 WBC (4.5-12.0) X10-3/uL RBC (3.23-5.20) x10(6)uL Hgb (11.5-15.5) g/dL Hct (30.0-51.3) % MCV (80-96) fL MCH (27.7-33.6) pg MCHC (32.2-35.4) g/dL RDW (11.5-15.5) % Plt Count (125-369) X10(3)uL MPV (7.4-10.4) fL Neut % (Auto) (46-82) % Lymph % (Auto) (13-37) % [place] % (Auto) (4-12) % Eos % (Auto) (1.0-5.0) % Baso % (Auto) (0-2) % Neut # (Auto) (1.6-8.3) # Lymph # (Auto) (0.6-5.0) # [place] # (Auto) (0.0-1.3) # Eos # (Auto) (0.0-0.8) # Baso # (Auto) (0.0-0.2) # Add Manual Diff Neutrophils % (Manual) (46-82) % Lymphocytes % (Manual) (13-37) % Monocytes % (Manual) (4-12) % Eosinophils % (Manual) (0-5) % Hypersegmented Neuts Anisocytosis ESR (0-20) mm/hr D-Dimer, Quantitative (100-400) ng/mL Sodium (135-145) mmol/L Potassium 3.8 3.8 3.0 L (3.5-5.3) mmol/L Chloride (100-110) mmol/L Carbon Dioxide (21-32) mmol/L BUN (7-18) mg/dL Creatinine (0.55-1.02) mg/dL Est Cr Clr Drug Dosing mL/min Estimated GFR (MDRD) (>60) BUN/Creatinine Ratio (9-20) Glucose (80-116) mg/dL Calcium (8.6-10.2) mg/dL Magnesium (1.8-2.5) mg/dL Total Bilirubin (0.1-1.3) mg/dL AST (5-25) IU/L ALT (12-36) U/L Alkaline Phosphatase (56-112) IU/L Troponin I (<0.017-0.056) ng/mL C-Reactive Protein (0.5-0.9) mg/dL NT-Pro-B Natriuret Pep (<=450) pg/mL Total Protein (6.0-8.0) g/dL Albumin (2.9-4.5) g/dL Globulin g/dL Albumin/Globulin Ratio TSH, Ultra Sensitive (0.36-3.74) IU/mL Urine Color (YELLOW) Urine Appearance (CLEAR) Urine pH (5.0-6.5) Ur Specific [place] (1.010-1.025) Urine Protein (NEGATIVE) mg/dL Urine Glucose (UA) (NEGATIVE) mg/dL Urine Ketones (NEGATIVE) mg/dL Urine Occult Blood (NEGATIVE) Urine Nitrite (NEGATIVE) Urine Bilirubin (NEGATIVE) Urine Urobilinogen (NEGATIVE) mg/dL Ur Leukocyte Esterase (NEGATIVE) Urine RBC (0) Urine WBC (0) Ur Squamous Epith Cells (NS,R,O) Urine Bacteria (NS) 10/04/17 10/04/17 10/04/17 Range/Units 07:12 07:12 07:12 WBC 5.6 (4.5-12.0) X10-3/uL RBC 4.34 (3.23-5.20) x10(6)uL Hgb 14.1 (11.5-15.5) g/dL Hct 42.8 (30.0-51.3) % MCV 98.5 H (80-96) fL MCH 32.5 (27.7-33.6) pg MCHC 32.9 (32.2-35.4) g/dL RDW 16.1 H (11.5-15.5) % Plt Count 150 (125-369) X10(3)uL MPV 8.7 (7.4-10.4) fL Neut % (Auto) (46-82) % Lymph % (Auto) (13-37) % [place] % (Auto) (4-12) % Eos % (Auto) (1.0-5.0) % Baso % (Auto) (0-2) % Neut # (Auto) (1.6-8.3) # Lymph # (Auto) (0.6-5.0) # [place] # (Auto) (0.0-1.3) # Eos # (Auto) (0.0-0.8) # Baso # (Auto) (0.0-0.2) # Add Manual Diff Yes Neutrophils % (Manual) 57 (46-82) % Lymphocytes % (Manual) 24 (13-37) % Monocytes % (Manual) 18 H (4-12) % Eosinophils % (Manual) 1 (0-5) % Hypersegmented Neuts Anisocytosis Few ESR (0-20) mm/hr D-Dimer, Quantitative (100-400) ng/mL Sodium 139 (135-145) mmol/L Potassium 4.0 D (3.5-5.3) mmol/L Chloride 102 D (100-110) mmol/L Carbon Dioxide 29 (21-32) mmol/L BUN 25 H (7-18) mg/dL Creatinine 1.4 H (0.55-1.02) mg/dL Est Cr Clr Drug Dosing 22.53 mL/min Estimated GFR (MDRD) 35 L (>60) BUN/Creatinine Ratio 17.9 (9-20) Glucose 96 (80-116) mg/dL Calcium 9.5 (8.6-10.2) mg/dL Magnesium (1.8-2.5) mg/dL Total Bilirubin (0.1-1.3) mg/dL AST (5-25) IU/L ALT (12-36) U/L Alkaline Phosphatase (56-112) IU/L Troponin I (<0.017-0.056) ng/mL C-Reactive Protein 0.6 (0.5-0.9) mg/dL NT-Pro-B Natriuret Pep 51405 H* (<=450) pg/mL Total Protein (6.0-8.0) g/dL Albumin (2.9-4.5) g/dL Globulin g/dL Albumin/Globulin Ratio TSH, Ultra Sensitive (0.36-3.74) IU/mL Urine Color (YELLOW) Urine Appearance (CLEAR) Urine pH (5.0-6.5) Ur Specific [place] (1.010-1.025) Urine Protein (NEGATIVE) mg/dL Urine Glucose (UA) (NEGATIVE) mg/dL Urine Ketones (NEGATIVE) mg/dL Urine Occult Blood (NEGATIVE) Urine Nitrite (NEGATIVE) Urine Bilirubin (NEGATIVE) Urine Urobilinogen (NEGATIVE) mg/dL Ur Leukocyte Esterase (NEGATIVE) Urine RBC (0) Urine WBC (0) Ur Squamous Epith Cells (NS,R,O) Urine Bacteria (NS) 10/04/17 10/04/17 Range/Units 07:12 12:25 WBC (4.5-12.0) X10-3/uL RBC (3.23-5.20) x10(6)uL Hgb (11.5-15.5) g/dL Hct (30.0-51.3) % MCV (80-96) fL MCH (27.7-33.6) pg MCHC (32.2-35.4) g/dL RDW (11.5-15.5) % Plt Count (125-369) X10(3)uL MPV (7.4-10.4) fL Neut % (Auto) (46-82) % Lymph % (Auto) (13-37) % [place] % (Auto) (4-12) % Eos % (Auto) (1.0-5.0) % Baso % (Auto) (0-2) % Neut # (Auto) (1.6-8.3) # Lymph # (Auto) (0.6-5.0) # [place] # (Auto) (0.0-1.3) # Eos # (Auto) (0.0-0.8) # Baso # (Auto) (0.0-0.2) # Add Manual Diff Neutrophils % (Manual) (46-82) % Lymphocytes % (Manual) (13-37) % Monocytes % (Manual) (4-12) % Eosinophils % (Manual) (0-5) % Hypersegmented Neuts Anisocytosis ESR (0-20) mm/hr D-Dimer, Quantitative (100-400) ng/mL Sodium (135-145) mmol/L Potassium (3.5-5.3) mmol/L Chloride (100-110) mmol/L Carbon Dioxide (21-32) mmol/L BUN (7-18) mg/dL Creatinine (0.55-1.02) mg/dL Est Cr Clr Drug Dosing mL/min Estimated GFR (MDRD) (>60) BUN/Creatinine Ratio (9-20) Glucose (80-116) mg/dL Calcium (8.6-10.2) mg/dL Magnesium (1.8-2.5) mg/dL Total Bilirubin (0.1-1.3) mg/dL AST (5-25) IU/L ALT (12-36) U/L Alkaline Phosphatase (56-112) IU/L Troponin I 0.032 0.026 (<0.017-0.056) ng/mL C-Reactive Protein (0.5-0.9) mg/dL NT-Pro-B Natriuret Pep (<=450) pg/mL Total Protein (6.0-8.0) g/dL Albumin (2.9-4.5) g/dL Globulin g/dL Albumin/Globulin Ratio TSH, Ultra Sensitive (0.36-3.74) IU/mL Urine Color (YELLOW) Urine Appearance (CLEAR) Urine pH (5.0-6.5) Ur Specific [place] (1.010-1.025) Urine Protein (NEGATIVE) mg/dL Urine Glucose (UA) (NEGATIVE) mg/dL Urine Ketones (NEGATIVE) mg/dL Urine Occult Blood (NEGATIVE) Urine Nitrite (NEGATIVE) Urine Bilirubin (NEGATIVE) Urine Urobilinogen (NEGATIVE) mg/dL Ur Leukocyte Esterase (NEGATIVE) Urine RBC (0) Urine WBC (0) Ur Squamous Epith Cells (NS,R,O) Urine Bacteria (NS) Med Orders - Current: Current Medications Acetaminophen (Tylenol) 650 mg PO Q4H PRN PRN Reason: Pain (Mild 1-3)/fever Last Admin: 10/05/17 00:12 Dose: 650 mg Amiodarone HCl (Cordarone) 100 mg PO DAILY COUNT INCLUDES THE [facility] Last Admin: 10/05/17 08:59 Dose: 100 mg Enoxaparin Sodium (Lovenox) 30 mg SUBCUT Q24H COUNT INCLUDES THE [facility] Last Admin: 10/04/17 18:31 Dose: 30 mg Furosemide (Lasix) 80 mg PO DAILY COUNT INCLUDES THE [facility] Last Admin: 10/05/17 08:58 Dose: 80 mg Sodium Chloride (Normal Saline) 250 mls @ 0 mls/hr IV ASDIRECTED COUNT INCLUDES THE [facility] PRN Reason: KVO Last Admin: 10/02/17 13:10 Dose: 50 mls/hr Metoprolol Succinate (Toprol Xl) 12.5 mg PO BID COUNT INCLUDES THE [facility] Last Admin: 10/05/17 09:25 Dose: 12.5 mg Potassium Chloride (Klor-Con M20) 20 meq PO DAILY COUNT INCLUDES THE [facility] Last Admin: 10/05/17 08:58 Dose: 20 meq Sodium Chloride (Saline Flush) 10 ml FLUSH ASDIRECTED PRN PRN Reason: Keep Vein Open Last Admin: 10/03/17 00:29 Dose: 10 ml Discontinued Medications Carvedilol (Coreg) 3.125 mg PO BIDMEALS COUNT INCLUDES THE [facility] Last Admin: 10/02/17 14:12 Dose: Not Given Carvedilol (Coreg) 1.563 mg PO BIDMEALS COUNT INCLUDES THE [facility] Last Admin: 10/03/17 10:15 Dose: Not Given Furosemide (Lasix) 40 mg IVPUSH Q6H COUNT INCLUDES THE [facility] Last Admin: 10/03/17 05:58 Dose: 40 mg Potassium Chloride 20 meq/ (Premix) 100 mls @ 50 mls/hr IV ONETIME ONE Stop: 10/02/17 12:50 Last Admin: 10/02/17 12:46 Dose: 50 mls/hr Iopamidol (Isovue-370 (76%)) 75 ml IV ONETIME ONE Stop: 10/01/17 12:51 Lisinopril (Prinivil) 2.5 mg PO DAILY COUNT INCLUDES THE [facility] Last Admin: 10/01/17 19:10 Dose: Not Given Lisinopril (Prinivil) Confirm Administered Dose 5 mg .ROUTE .STK-MED ONE Stop: 10/01/17 18:50 Last Admin: 10/01/17 21:14 Dose: Not Given Lisinopril (Prinivil) 2.5 mg PO DAILY COUNT INCLUDES THE [facility] Last Admin: 10/02/17 12:09 Dose: Not Given Lisinopril (Prinivil) 2.5 mg PO DAILY COUNT INCLUDES THE [facility] Metoprolol Tartrate (Lopressor) 25 mg PO Q6H COUNT INCLUDES THE [facility] Last Admin: 10/04/17 03:30 Dose: Not Given Metoprolol Tartrate (Lopressor) 12.5 mg PO Q6H COUNT INCLUDES THE [facility] Last Admin: 10/05/17 03:21 Dose: 12.5 mg Potassium Chloride (Klor-Con M20) 20 meq PO DAILY COUNT INCLUDES THE [facility] Last Admin: 10/03/17 10:40 Dose: 20 meq Potassium Chloride (Klor-Con M20) 40 meq PO ONETIME ONE Stop: 10/02/17 04:15 Last Admin: 10/02/17 04:35 Dose: 40 meq Potassium Chloride (Klor-Con M20) 40 meq PO DAILY COUNT INCLUDES THE [facility] Potassium Chloride (Klor-Con M20) 20 meq PO ONETIME ONE Stop: 10/03/17 09:20 Last Admin: 10/03/17 10:15 Dose: 20 meq Sodium Chloride (Sodium Chloride) 1 gm PO ASDIRECTED COUNT INCLUDES THE [facility] - Exam Physical Findings Comments:: General: Alert, Oriented, Cooperative. Smiling. No: no distress, HEENT: Conjunctiva Clear, Mucosa Moist & [place]. Neck: Supple, Trachea Midline. Lungs: Minimal Rales (lower lobes) with aeration to the bases improved significantly bilaterally. Cardiovascular: Regular Rate, Regular Rhythm. No: Gallop/S3, Gallop/S4. No events on tele overnight. GI/Abdominal Exam: Normal Bowel Sounds, Soft, Non-Tender, No Distention Extremities: Non-Tender. No: Joint Swelling, Kelton's Sign, Increased Warmth Skin: Warm, Dry. Neurological: Strength Equal Bilateral, Normal Speech, Normal Tone Neuro Extensive - Mental Status: Normal Mood/Affect, Normal Cognition *Q Meaningful Use (DIS) - VTE *Q VTE Criteria *Q: - Stroke *Q Stroke Criteria *Q: - AMI *Q AMI Criteria *Q:
== END 2017-10-05 15:35 | disposition home health service (06) | DRG 293 ==
LOC: FB.ED 10:29 → FB.MS 15:10
PROVIDERS: ADMIT Family Medicine; ATTEND Family Medicine
DX: I11.0 Hypertensive heart disease with heart failure (principal); I50.23 Acute on chronic systolic (congestive) heart failure; E11.9 Type 2 diabetes mellitus without complications; Z66 Do not resuscitate; R79.1 Abnormal coagulation profile; R06.02 Shortness of breath; I95.89 Other hypotension; E87.6 Hypokalemia; D69.6 Thrombocytopenia, unspecified; D64.9 Anemia, unspecified; Z51.5 Encounter for palliative care; N28.9 Disorder of kidney and ureter, unspecified; E78.00 Pure hypercholesterolemia, unspecified; M19.90 Unspecified osteoarthritis, unspecified site; Z79.899 Other long term (current) drug therapy; Z85.72 Personal history of non-Hodgkin lymphomas; Z92.21 Personal history of antineoplastic chemotherapy; Z88.8 Allergy status to other drugs, medicaments and biological substances
CPT/HCPCS: 36410; 36415; 71010; 71020; 71046; 71275; 80048; 80053; 81001; 83735; 83880; 84132; 84295; 84443; 84484; 85025; 85379; 85651; 86140; 93005; 93010; 94150; 99285; A9270-GY; J1650; J1940; J3480; J7050